=== PATIENT | male | born 1990 | race Caucasian/White ===

== ENCOUNTER 2019-05-02 10:07 | Emergency (ER) | payer MEDICARE, OTHER ==
[2019-05-02 10:27] VITALS: BP 145/82; PULSE 105; RESP 18; TEMP 98.5
--- NOTE | 2019-05-02 10:43 | ED ---
General Adult HPI - General Chief complaint: Psychiatric Symptoms Stated complaint: mental health Time Seen by Provider: 05/02/19 10:30 Source: patient, RN notes reviewed Mode of arrival: ambulatory Limitations: no limitations - History of Present Illness Initial comments: Patient is a pleasant 29-year-old male presenting to the emergency Department with complaints of depression and suicidal thoughts. Symptoms have worsened over the past few days. Patient states many stressors. Patient does admit to having problems with alcohol and substance abuse. Patient does hear voices telling him to hurt himself. No visual hallucinations. No homicidal thoughts. No history of similar symptoms previously. No new physical complaints. Patient did abrade his left wrist last night. Tetanus immunization last was 7 years ago, definitely less than 10 years ago - Related Data Home Medications Medication Instructions Recorded Confirmed Escitalopram [Lexapro] 20 mg PO HS 05/02/19 05/02/19 Naltrexone HCl [Revia] 50 mg PO DAILY PRN 05/02/19 05/02/19 OLANZapine [ZyPREXA] 15 mg PO HS 05/02/19 05/02/19 lamoTRIgine [LaMICtal] 200 mg PO HS 05/02/19 05/02/19 Allergies Allergy/AdvReac Type Severity Reaction Status Date / Time No Known Allergies Allergy Verified 05/02/19 12:34 Review of Systems ROS Statement: Those systems with pertinent positive or pertinent negative responses have been documented in the HPI. ROS Other: All systems not noted in ROS Statement are negative. Constitutional: Denies: fever Eyes: Denies: eye pain ENT: Denies: ear pain Respiratory: Denies: cough Cardiovascular: Denies: chest pain Endocrine: Denies: fatigue Gastrointestinal: Denies: abdominal pain Genitourinary: Denies: dysuria Musculoskeletal: Denies: arthralgia Skin: Denies: rash Neurological: Denies: weakness Psychiatric: Reports: depression, auditory hallucinations, suicidal thoughts. Denies: visual hallucinations, homicidal thoughts Past Medical History Past Medical History: No Reported History History of Any Multi-Drug Resistant Organisms: None Reported Past Surgical History: Tonsillectomy Additional Past Surgical History / Comment(s): oral Past Psychological History: Anxiety, Bipolar, Depression, PTSD, Schizophrenia Smoking Status: Current every day smoker Past Alcohol Use History: Abuse, Daily, Heavy Past Drug Use History: Marijuana General Exam Limitations: no limitations General appearance: alert, in no apparent distress Head exam: Present: normocephalic Eye exam: Present: normal appearance Neck exam: Present: normal inspection Respiratory exam: Present: normal lung sounds bilaterally Cardiovascular Exam: Present: regular rate, normal rhythm GI/Abdominal exam: Present: soft. Absent: tenderness Extremities exam: Present: other (Abrasion left volar aspect of the wrist) Neurological exam: Present: alert Psychiatric exam: Present: depressed Skin exam: Present: abrasion Course Vital Signs 05/02/19 10:22 Temperature 98.5 F Pulse Rate 105 H Respiratory 18 Rate Blood Pressure 145/82 O2 Sat by Pulse 97 Oximetry Medical Decision Making - Medical Decision Making Patient was seen by mental health services with plans for transfer. Family did petition. Positive clinical certificate completed. - Lab Data Lab Results 05/02/19 Range/Units 13:09 Urine Opiates Screen Not Detected (NotDetected) Ur Oxycodone Screen Not Detected (NotDetected) Urine Methadone Screen Not Detected (NotDetected) Ur Propoxyphene Screen Not Detected (NotDetected) Ur Barbiturates Screen Not Detected (NotDetected) U Tricyclic Antidepress Not Detected (NotDetected) Ur Phencyclidine Scrn Not Detected (NotDetected) Ur Amphetamines Screen Not Detected (NotDetected) U Methamphetamines Scrn Not Detected (NotDetected) U Benzodiazepines Scrn Not Detected (NotDetected) Urine Cocaine Screen Not Detected (NotDetected) U Marijuana (THC) Screen Detected H (NotDetected) Disposition Clinical Impression: Depression, Suicidal ideation Disposition: TRANSFER TO PSYCH HOSP/UNIT Is patient prescribed a controlled substance at d/c from ED?: No Referrals: None,Stated [Primary Care Provider] - 1-2 days Time of Disposition: 14:07
[2019-05-02] MEDS ORDERED: LORazepam 1 MG TAB PO STA (12:16)
[2019-05-02 13:38] LABS: Amphetamine Screen,Urine Not Detected (NotDetected); Barbiturate Screen,Urine Not Detected (NotDetected); Benzodiazepines Screen,Urine Not Detected (NotDetected); Cocaine Screen,Urine Not Detected (NotDetected); Methadone Screen, Urine Not Detected (NotDetected); Opiate Screen,Urine Not Detected (NotDetected); Oxycodone Screen, Urine Not Detected (NotDetected); Phencyclidine Screen,Urine Not Detected (NotDetected); Tricyclic Antidepressant,Urine Not Detected (NotDetected); Urn Cannabinoid Scrn Detected (NotDetected)
[2019-05-02] MEDS ORDERED: NICOTINE 14MG/24HR PATCH TRANSDERM STA (15:40)
== END 2019-05-02 16:09 ==
LOC: EC 10:07
DX: F32.9 Major depressive disorder, single episode, unspecified (principal); R45.851 Suicidal ideations; S60.812A Abrasion of left wrist, initial encounter; F41.9 Anxiety disorder, unspecified; F20.9 Schizophrenia, unspecified; F10.10 Alcohol abuse, uncomplicated; F17.200 Nicotine dependence, unspecified, uncomplicated; Z79.899 Other long term (current) drug therapy; X78.9XXA Intentional self-harm by unspecified sharp object, initial encounter
CPT/HCPCS: 82075; 80306; 99285; S4990

== ENCOUNTER 2022-12-18 17:36 | Emergency (ER) | payer MEDICARE, OTHER ==
[2022-12-18 17:50] VITALS: RESP 18
--- NOTE | 2022-12-18 18:21 | ED ---
Lower Extremity Injury HPI - General Chief Complaint: Extremity Injury, Lower Stated Complaint: L ankle injury Time Seen by Provider: 12/18/22 17:54 Source: patient, RN notes reviewed, old records reviewed Mode of arrival: ambulatory Limitations: no limitations - History of Present Illness Initial Comments: This is a 32-year-old male to the emergency department for evaluation. This patient presents today for evaluation regards to ankle injury left ankle injury after falling down a few stairs. Patient missed a step and came down on his ankle with inversion of the left ankle. Pain on the lateral aspect of that left ankle. Patient is able to move but barely. Significant pain with weightbearing. No other to medic injuries noted other complaints are noted MD Complaint: leg injury, ankle injury (Left ankle) -: hour(s) Injury: Ankle: Left Type of Injury: inversion Place: home Severity: severe Severity scale (1-10): 8 Improves With: nothing Worsens With: nothing Context: fall Other Symptoms: other (0) Associated Symptoms: swelling, numbness Treatments Prior to Arrival: other (0) - Related Data Home Medications Medication Instructions Recorded Confirmed Escitalopram [Lexapro] 20 mg PO HS 05/02/19 05/02/19 Naltrexone HCl [Revia] 50 mg PO DAILY PRN 05/02/19 05/02/19 OLANZapine [ZyPREXA] 15 mg PO HS 05/02/19 05/02/19 lamoTRIgine [LaMICtal] 200 mg PO HS 05/02/19 05/02/19 Allergies Allergy/AdvReac Type Severity Reaction Status Date / Time No Known Allergies Allergy Verified 12/18/22 17:50 Review of Systems ROS Statement: Those systems with pertinent positive or pertinent negative responses have been documented in the HPI. ROS Other: All systems not noted in ROS Statement are negative. Past Medical History Past Medical History: No Reported History History of Any Multi-Drug Resistant Organisms: None Reported Past Surgical History: Tonsillectomy Additional Past Surgical History / Comment(s): oral Past Psychological History: Anxiety, Bipolar, Depression, PTSD, Schizophrenia Smoking Status: Current every day smoker Past Alcohol Use History: Abuse, Daily, Heavy Past Drug Use History: Marijuana General Exam Limitations: no limitations General appearance: alert, in no apparent distress Head exam: Present: atraumatic, normocephalic, normal inspection Eye exam: Present: normal appearance, PERRL, EOMI. Absent: scleral icterus, c onjunctival injection, periorbital swelling ENT exam: Present: normal exam, mucous membranes moist Neck exam: Present: normal inspection. Absent: tenderness, meningismus, lymphadenopathy Respiratory exam: Present: normal lung sounds bilaterally. Absent: respiratory distress, wheezes, rales, rhonchi, stridor Cardiovascular Exam: Present: regular rate, normal rhythm, normal heart sounds. Absent: systolic murmur, diastolic murmur, rubs, gallop, clicks GI/Abdominal exam: Present: soft, normal bowel sounds. Absent: distended, tenderness, guarding, rebound, rigid Extremities exam: Present: tenderness, normal capillary refill, other (Left ankle swelling). Absent: pedal edema, joint swelling, calf tenderness Back exam: Present: normal inspection Neurological exam: Present: alert, oriented X3, CN II-XII intact Psychiatric exam: Present: normal affect, normal mood Skin exam: Present: warm, dry, intact, normal color. Absent: rash Course Vital Signs 12/18/22 12/18/22 17:46 19:00 Temperature 97.8 F 97.9 F Pulse Rate 100 96 Respiratory 18 18 Rate Blood Pressure 116/79 121/68 O2 Sat by Pulse 95 96 Oximetry - Reevaluation(s) Reevaluation #1: 12/18/22 19:15 Medical record is reviewed Reevaluation #2: 12/18/22 19:15 Patient symptoms unchanged Reevaluation #3: 12/18/22 19:15 Patient informed results questions answered Reevaluation #4: 12/18/22 18:21 Was pt. sent in by a medical professional or institution? @ -no Did you speak to anyone other than the patient for history? @ -no Did you review nursing and triage notes? @ -agree Were old charts reviewed? @ -yes Differential Diagnosis? @ -prior EKG interpreted by me (3pts min.)? @ -no X-rays interpreted by me (1pt min.)? @ -yes CT interpreted by me (1pt min.)? @ -no U/S interpreted by me (1pt. min.)? @ -no What testing was considered but not performed? (CT, X-rays, U/S, labs)? Why? @ -no What meds were considered but not given? Why? @ -no Did you discuss the management of the patient with other professionals? @ -no Did you reconcile home meds? @ -no Was smoking cessation discussed for >3mins.? @ -no Was critical care preformed (if so, how long)? @ -no Were there social determinants of health that impacted care today? How? (Homelessness, low income, unemployed, alcoholism, drug addiction, transportation, low edu. Level, literacy, decrease access to med. care, [facility], rehab)? @ -no Was there de-escalation of care discussed even if they declined? (Discuss DNR or withdrawal of care, Hospice)? @ -no What co-morbidities impacted this encounter? (DM, HTN, Smoking, COPD, CAD, Cancer, CVA, Hep., AIDS, mental health diagnosis, sleep apnea, morbid obesity)? @ -no Was patient admitted / discharged? @ -32 male with left inversion injury of left ankle walking down stairs. Patient continued weight currently here in the ER feels well and can be discharged home Discharge Undiagnosed new problem with uncertain prognosis? @ -no Drug Therapy requiring intensive monitoring for toxicity (Heparin, Nitro, Insulin, Cardizem)? @ -no Were any procedures done? @ -no Diagnosis/symptom? @ -Fall left ankle sprain Acute, or Chronic, or Acute on Chronic? @ -acute Uncomplicated (without systemic symptoms) or Complicated (systemic symptoms)? @ -complicated Side effects of treatment? @ -no Exacerbation, Progression, or Severe Exacerbation] @ -no Poses a threat to life or bodily function? @ -no Medical Decision Making - Medical Decision Making 32 male with left inversion injury of left ankle walking down stairs. Patient continued weight currently here in the ER feels well and can be discharged home - Radiology Data Radiology results: report reviewed (X-ray left ankle negative for traumatic injury), image reviewed Disposition Clinical Impression: Left ankle sprain Disposition: HOME SELF-CARE Condition: Good Instructions (If sedation given, give patient instructions): Ankle Sprain (ED) Is patient prescribed a controlled substance at d/c from ED?: No Referrals: Zelalem Kramer MD [Primary Care Provider] - 1-2 days Time of Disposition: 19:00
--- NOTE | 2022-12-18 18:57 | XR ---
EXAMINATION TYPE: XR ankle complete LT DATE OF EXAM: 12/18/2022 6:35 PM INDICATION: Patient age:Male; 32 years old; Reason for study: pain; [facility]. COMPARISON: None TECHNIQUE: The left ankle is imaged in frontal, lateral and oblique projections. FINDINGS: There is no evidence of acute osseous pathology. The joint spaces are well-preserved without evidenc e of subluxation or dislocation. Kager's fat pad is intact. Moderate soft tissue swelling around the ankle. No radiopaque foreign bodies are identified. IMPRESSION: 1. No evidence of acute fracture. 2. Subcutaneous swelling around the ankle likely secondary to underlying soft tissue injury.
[2022-12-18 19:01] VITALS: BP 121/68; PULSE 96; TEMP 97.9
== END 2022-12-18 19:12 | disposition home or self-care (01) ==
LOC: EC 17:36
DX: S93.402A Sprain of unspecified ligament of left ankle, initial encounter (principal); F31.9 Bipolar disorder, unspecified; F41.9 Anxiety disorder, unspecified; F17.200 Nicotine dependence, unspecified, uncomplicated; F12.90 Cannabis use, unspecified, uncomplicated; Z79.899 Other long term (current) drug therapy; W10.9XXA Fall (on) (from) unspecified stairs and steps, initial encounter
CPT/HCPCS: 99283

== ENCOUNTER 2023-05-15 14:26 | Inpatient (IN) | payer MEDICARE, MEDICAID ==
--- NOTE | 2023-05-15 16:19 | ED ---
Psych HPI - General Chief Complaint: Psychiatric Symptoms Stated Complaint: Mental Health Time Seen by Provider: 05/15/23 14:40 Source: patient Mode of arrival: ambulatory - History of Present Illness Initial Comments: Is a 33-year-old male with a history of mental health issues for which his parents have guardianship of him and full control of his finances. Patient reports that he lives in his duplex which is owned by his parents and they manage his finances and dictated a living. Patient states that he's been very depressed lately he hasn't been cleaning up after himself he does admit that there is mold growing in bugs throughout his apartment. He states that his parents came to house yesterday were quite upset they're yelling and a member reading it him in front of his neighbors which she found quite embarrassing. They came back today and advised him the removing him into a hotel room. Patient doesn't know why he is moving at a hotel room how long he'll be there. He states she just feels absolutely hopeless and his current condition. Patient denies any suicidal or homicidal ideation. He does not believe he is hallucinating or having any delusions. He simply feels depressed and hopeless he has not been tending to his own self-care personal hygiene or maintaining his home due to this depression. - Related Data Home Medications Medication Instructions Recorded Confirmed No Known Home Medications 05/15/23 05/15/23 Allergies Allergy/AdvReac Type Severity Reaction Status Date / Time No Known Allergies Allergy Verified 05/15/23 16:25 Review of Systems ROS Statement: Those systems with pertinent positive or pertinent negative responses have been documented in the HPI. ROS Other: All systems not noted in ROS Statement are negative. Past Medical History Past Medical History: No Reported History History of Any Multi-Drug Resistant Organisms: None Reported Past Surgical History: Tonsillectomy Additional Past Surgical History / Comment(s): oral Past Psychological History: Anxiety, Bipolar, Depression, PTSD, Schizophrenia Smoking Status: Current every day smoker Past Alcohol Use History: Abuse, Daily, Heavy Past Drug Use History: Marijuana General Exam - General Exam Comments Initial Comments: Physical Exam GENERAL: Unkempt appearance HENT: Normocephalic, Atraumatic. EYES: PERRL, EOMI PULMONARY: Unlabored respirations. CARDIOVASCULAR: well perfused extremities ABDOMEN: Non-distended SKIN: No rashes or bruising : Deferred NEUROLOGIC: Alert and oriented Normal speech MUSCULOSKELETAL: Moving all extremities with no apparent injury PSYCHIATRIC: Depression Limitations: no limitations Course Vital Signs 05/15/23 14:33 Temperature 98.6 F Pulse Rate 92 Respiratory 18 Rate Blood Pressure 149/92 O2 Sat by Pulse 96 Oximetry Medical Decision Making - Medical Decision Making Was pt. sent in by a medical professional or institution (, PA, FURNITURE MECHANIC, urgent care, hospital, or fci...) When possible be specific @ -No Did you speak to anyone other than the patient for history (EMS, parent, family, police, friend...)? What history was obtained from this source @ -No Did you review nursing and triage notes (agree or disagree)? Why? @ -I reviewed and agree with nursing and triage notes Were old charts reviewed (outside hosp., previous admission, EMS record, old EKG, old radiological studies, urgent care reports/EKG's, [facility]ci records)? Report findings @ -No old charts were reviewed Differential Diagnosis (chest pain, altered mental status, abdominal pain women, abdominal pain men, vaginal bleeding, weakness, fever, dyspnea, syncope, headache, dizziness, GI bleed, back pain, seizure, CVA, palpatations, mental health)? @ -Differential Mental Health Depression, anxiety, bipolar, psychosis, schizophrenia, borderline personality, situational depression, adjustment disorder, behavioral disorder, brain tumor, malingering, substance abuse, encephalopathy, medication reaction, dementia, hypothyroidism, degenerative neurologic disorder, lupus.... This is not meant to be all-inclusive list EKG interpreted by me (3pts min.). @ -As above X-rays interpreted by me (1pt min.). @ -None done CT interpreted by me (1pt min.). @ -None done U/S interpreted by me (1pt. min.). @ -None done What testing was considered but not performed or refused? (CT, X-rays, U/S, labs)? Why? @ -None What meds were considered but not given or refused? Why? @ -None Did you discuss the management of the patient with other professionals (professionals i.e. , PA, FURNITURE MECHANIC, lab, RT, psych nurse, bilingual social worker, signal intelligence/electronic warfare, teacher, space officer, home health care case manager)? Give summary @ -No Was smoking cessation discussed for >3mins.? @ -No Was critical care preformed (if so, how long)? @ -No Were there social determinants of health that impacted care today? How? (Homelessness, low income, unemployed, alcoholism, drug addiction, trans portation, low edu. Level, literacy, decrease access to med. care, [facility], rehab)? @ -Alcoholism Was there de-escalation of care discussed even if they declined (Discuss DNR or withdrawal of care, Hospice)? DNR status @ -No What co-morbidities impacted this encounter? (DM, HTN, Smoking, COPD, CAD, Cancer, CVA, ARF, Chemo, Hep., AIDS, mental health diagnosis, sleep apnea, morbid obesity)? @ Mental health diagnosis Was patient admitted / discharged? Hospital course, mention meds given and route, prescriptions, significant lab abnormalities, going to OR and other pertinent info. @ -Was seen and evaluated history was obtained from patient, patient was medically cleared for evaluation by mental health specialist, patient was evaluated and deemed to be suitable for inpatient psychiatric care. Patient signed himself in voluntarily. Covid swab was obtained for placement in the mental health unit Undiagnosed new problem with uncertain prognosis? @ -No Drug Therapy requiring intensive monitoring for toxicity (Heparin, Nitro, Insulin, Cardizem)? @ -No Were any procedures done? @ -No Diagnosis/symptom? @ Major depression Acute, or Chronic, or Acute on Chronic? @ -default Uncomplicated (without systemic symptoms) or Complicated (systemic symptoms)? @ -default Side effects of treatment? @ -No Exacerbation, Progression, or Severe Exacerbation? @ -No Poses a threat to life or bodily function? How? (Chest pain, [place], [place], pneumonia, PE, COPD, DKA, ARF, appy, cholecystitis, CVA, Diverticulitis, Homicidal, Suicidal, threat to staff... and all critical care pts) @ -No - Lab Data Lab Results 05/15/23 Range/Units 16:22 Urine Opiates Screen Not Detected (NotDetected) Ur Oxycodone Screen Not Detected (NotDetected) Urine Methadone Screen Not Detected (NotDetected) Ur Propoxyphene Screen Not Detected (NotDetected) Ur Barbiturates Screen Not Detected (NotDetected) U Tricyclic Antidepress Not Detected (NotDetected) Ur Phencyclidine Scrn Not Detected (NotDetected) Ur Amphetamines Screen Not Detected (NotDetected) U Methamphetamines Scrn Not Detected (NotDetected) U Benzodiazepines Scrn Not Detected (NotDetected) Urine Cocaine Screen Not Detected (NotDetected) U Marijuana (THC) Screen Not Detected (NotDetected) Disposition Clinical Impression: Suicidal ideation, Depression Disposition: TRANSFER TO PSYCH HOSP/UNIT Condition: Serious Is patient prescribed a controlled substance at d/c from ED?: No Referrals: Zelalem Kramer MD [Primary Care Provider] - 1-2 days
[2023-05-15 16:50] LABS: Amphetamine Screen,Urine Not Detected (NotDetected); Barbiturate Screen,Urine Not Detected (NotDetected); Benzodiazepines Screen,Urine Not Detected (NotDetected); Cocaine Screen,Urine Not Detected (NotDetected); Methadone Screen, Urine Not Detected (NotDetected); Opiate Screen,Urine Not Detected (NotDetected); Oxycodone Screen, Urine Not Detected (NotDetected); Phencyclidine Screen,Urine Not Detected (NotDetected); Tricyclic Antidepressant,Urine Not Detected (NotDetected); Urn Cannabinoid Scrn Not Detected (NotDetected)
[2023-05-15] MEDS ORDERED: haloperidoL 5 MG TAB PO PRN (20:55)
[2023-05-15] MEDS ORDERED: ACETAMINOPHEN TAB 325 MG TAB PO PRN (20:55)
[2023-05-15] MEDS ORDERED: MAGNESIUM HYDROXIDE 2,400 MG/30 ML CUP PO PRN (20:55)
[2023-05-15] MEDS ORDERED: MAG HYDROX/AL HYDROX/SIMETH 30 ML CUP PO PRN (20:55)
[2023-05-15] MEDS ORDERED: LORazepam 2 MG/ML INJ IM PRN (20:55)
[2023-05-15] MEDS ORDERED: IBUPROFEN 600 MG TAB PO PRN (20:55)
[2023-05-15] MEDS ORDERED: HALOPERIDOL LACTATE 5 MG/ML 1 ML VIAL IM PRN (20:55)
[2023-05-15 21:36] LABS: Appearance,Urine Clear (Clear); Bilirubin,Urine Negative (Negative); Blood,Urine Negative (Negative); Color,Urine Yellow; Glucose,Urine (UA) 4+ (Negative); Ketones,Urine Trace (Negative); Leukocyte Esterase,Urine Negative (Negative); Mucus,Urine Rare /hpf; Nitrite,Urine Negative (Negative); Protein,Urine 1+ (Negative); RBC,Urine <1 /hpf (0-5); Specific Gravity,Urine 1.025 (1.001-1.035); WBC,Urine 2 /hpf (0-5)
[2023-05-15] MEDS: LORazepam 1 MG TAB PO PRN (22:21)
[2023-05-16] MEDS: NICOTINE 14MG/24HR PATCH TRANSDERM SCH (08:30)
[2023-05-16] MEDS: LORazepam 1 MG TAB PO PRN (08:34)
[2023-05-16 10:11] LABS: Basophils % (A) 1 %; Eosinophils # (A) 0.1 k/uL (0-0.7); Eosinophils % (A) 2 %; HCT 45.9 % (39.0-53.0); HGB 15.6 gm/dL (13.0-17.5); Lymphocytes # (A) 1.2 k/uL (1.0-4.8); Lymphocytes % (A) 21 %; MCHC 34.1 g/dL (31.0-37.0); MCV 99.7 fL (80.0-100.0); Mean Platelet Volume 9.3; Monocytes # (A) 0.4 k/uL (0-1.0); Monocytes % (A) 7 %; Neutrophils # (A) 3.9 k/uL (1.3-7.7); Neutrophils % (A) 69 %; Platelet Count 191 k/uL (150-450); RDW 12.6 % (11.5-15.5); WBC 5.7 k/uL (3.8-10.6)
[2023-05-16 10:46] LABS: ALT 40 U/L (4-49); AST 50 U/L (17-59); African American GFR (CKD) >90 (>60 ml/min/1.73 sqM); Albumin 4.5 g/dL (3.5-5.0); Alkaline Phosphatase 85 U/L (38-126); Anion Gap 12 mmol/L; Blood Urea Nitrogen 8 mg/dL (9-20); Carbon Dioxide 32 mmol/L (22-30); Chloride 93 mmol/L (98-107); Glucose 87 mg/dL (74-99); Non-African American GFR(CKD) >90 (>60 ml/min/1.73 sqM); Potassium 4.1 mmol/L (3.5-5.1); Sodium 137 mmol/L (137-145); Total Bilirubin 1.9 mg/dL (0.2-1.3); Total Protein 7.3 g/dL (6.3-8.2)
[2023-05-16] MEDS ORDERED: traZODone HCL 50 MG TAB PO PRN (11:57)
--- NOTE | 2023-05-16 12:06 | P.HP ---
Psychiatric H&P - . H&P Date: 05/16/23 History & Physical: Allergies Allergy/AdvReac Type Severity Reaction Status Date / Time No Known Allergies Allergy Verified 05/16/23 00:35 Vital Signs Temp 98.4 F 05/16/23 08:35 Pulse 124 H 05/16/23 08:35 Resp 18 05/16/23 08:35 BP 121/90 05/16/23 08:35 Pulse Ox 96 05/15/23 14:33 FiO2 Intake & Output 05/15/23 05/16/23 05/16/23 18:59 06:59 18:59 Weight 79.379 kg 75.7 kg Laboratory Last Values WBC 5.7 k/uL (3.8-10.6) 05/16/23 09:27 RBC 4.60 m/uL (4.30-5.90) 05/16/23 09:27 Hgb 15.6 gm/dL (13.0-17.5) 05/16/23 09:27 Hct 45.9 % (39.0-53.0) 05/16/23 09:27 MCV 99.7 fL (80.0-100.0) 05/16/23 09:27 MCH 34.0 pg (25.0-35.0) 05/16/23 09:27 MCHC 34.1 g/dL (31.0-37.0) 05/16/23 09:27 RDW 12.6 % (11.5-15.5) 05/16/23 09:27 Plt Count 191 k/uL (150-450) 05/16/23 09:27 MPV 9.3 05/16/23 09:27 Neutrophils % 69 % 05/16/23 09:27 Lymphocytes % 21 % 05/16/23 09:27 Monocytes % 7 % 05/16/23 09:27 Eosinophils % 2 % 05/16/23 09:27 Basophils % 1 % 05/16/23 09:27 Neutrophils # 3.9 k/uL (1.3-7.7) 05/16/23 09:27 Lymphocytes # 1.2 k/uL (1.0-4.8) 05/16/23 09:27 Monocytes # 0.4 k/uL (0-1.0) 05/16/23 09:27 Eosinophils # 0.1 k/uL (0-0.7) 05/16/23 09:27 Basophils # 0.0 k/uL (0-0.2) 05/16/23 09:27 Sodium 137 mmol/L (137-145) 05/16/23 09:27 Potassium 4.1 mmol/L (3.5-5.1) 05/16/23 09:27 Chloride 93 mmol/L (98-107) L 05/16/23 09:27 Carbon Dioxide 32 mmol/L (22-30) H 05/16/23 09:27 Anion Gap 12 mmol/L 05/16/23 09:27 BUN 8 mg/dL (9-20) L 05/16/23 09:27 Creatinine 0.96 mg/dL (0.66-1.25) 05/16/23 09:27 Est GFR (CKD-EPI)AfAm >90 (>60 ml/min/1.73 sqM) 05/16/23 09:27 Est GFR (CKD-EPI)NonAf >90 (>60 ml/min/1.73 sqM) 05/16/23 09:27 Glucose 87 mg/dL (74-99) 05/16/23 09:27 Calcium 10.0 mg/dL (8.4-10.2) 05/16/23 09:27 Total Bilirubin 1.9 mg/dL (0.2-1.3) H 05/16/23 09:27 AST 50 U/L (17-59) 05/16/23 09:27 ALT 40 U/L (4-49) 05/16/23 09:27 Alkaline Phosphatase 85 U/L (38-126) 05/16/23 09:27 Total Protein 7.3 g/dL (6.3-8.2) 05/16/23 09:27 Albumin 4.5 g/dL (3.5-5.0) 05/16/23 09:27 TSH 2.280 mIU/L (0.465-4.680) 05/16/23 09:27 Urine Color Yellow 05/15/23 19:00 Urine Appearance Clear (Clear) 05/15/23 19:00 Urine pH 8.0 (5.0-8.0) 05/15/23 19:00 Ur Specific [place] 1.025 (1.001-1.035) 05/15/23 19:00 Urine Protein 1+ (Negative) H 05/15/23 19:00 Urine Glucose (UA) 4+ (Negative) H 05/15/23 19:00 Urine Ketones Trace (Negative) H 05/15/23 19:00 Urine Blood Negative (Negative) 05/15/23 19:00 Urine Nitrite Negative (Negative) 05/15/23 19:00 Urine Bilirubin Negative (Negative) 05/15/23 19:00 Urine Urobilinogen 3.0 mg/dL (<2.0) 05/15/23 19:00 Ur Leukocyte Esterase Negative (Negative) 05/15/23 19:00 Urine RBC <1 /hpf (0-5) 05/15/23 19:00 Urine WBC 2 /hpf (0-5) 05/15/23 19:00 Urine Mucus Rare /hpf (None) H 05/15/23 19:00 Urine Opiates Screen Not Detected (NotDetected) 05/15/23 16:22 Ur Oxycodone Screen Not Detected (NotDetected) 05/15/23 16:22 Urine Methadone Screen Not Detected (NotDetected) 05/15/23 16:22 Ur Propoxyphene Screen Not Detected (NotDetected) 05/15/23 16:22 Ur Barbiturates Screen Not Detected (NotDetected) 05/15/23 16:22 U Tricyclic Antidepress Not Detected (NotDetected) 05/15/23 16:22 Ur Phencyclidine Scrn Not Detected (NotDetected) 05/15/23 16:22 Ur Amphetamines Screen Not Detected (NotDetected) 05/15/23 16:22 U Methamphetamines Scrn Not Detected (NotDetected) 05/15/23 16:22 U Benzodiazepines Scrn Not Detected (NotDetected) 05/15/23 16:22 Urine Cocaine Screen Not Detected (NotDetected) 05/15/23 16:22 U Marijuana (THC) Screen Not Detected (NotDetected) 05/15/23 16:22 SARS-CoV-2 (PCR) Not Detected (Not Detectd) 05/15/23 19:55 05/16/23 12:01 IDENTIFYING DATA: Patient is a 33-year-old male, currently lives alone in a duplex, he single, he collects SSD. HPI: Patient presented to the hospital yesterday complaining of depression and suicidal ideations. Apparently patient was taking care of his home, has a history of mental illness. He was also endorsing suicidal ideations and depression. Patient's urine drug screen was negative. He was fairly concrete, hesitant in his speech, he is also fairly vague about his symptoms. He states that his parents are "toxic people". He claims that they have been having significant financial issues between them, he believes that his parents are taking most of his money. He states his mother is his payee. He claims that his parents are also his landlord and are very controlling of him. He states that he "gave up on my house" and states that he left [place]. He claims that he has been mainly isolative. States that he has been diagnosed with Schizophrenia in the past and has been going [facility]. He has been off his psychiatric medications for several months now. He states that he is also been drinking alcohol about 2 pints a day, has a history of withdrawals. States that he believes that his parents are trying to move him into a hotel and get him out of the house. He states that he is feeling depressed, anxious and hopeless. He claims that he does have auditory hallucinations however they are not as bad as they used to be, denying any visual hallucinations. Patient denies any suicidal or homicidal ideations intent or plan. Patient denies any flight of ideas racing thoughts and increased in goal directed behavior. Patient admits to using alcohol as noted above, smokes cigarettes daily. PAST PSYCHIATRIC HISTORY: Patient states that he has history of schizophrenia. Patient claims that he used to be on Prolixin D and several other antipsychotics in the past including Zyprexa however cannot remember most of them. Patient claims that he was last admitted to [facility] and also [facility] for psychiatric purposes several years ago. Patient denies any current psychiatric outpatient follow-up. Patient denies any history of suicide attempts in the past. Past Medical History: No Reported History History of Any Multi-Drug Resistant Organisms: None Reported Past Surgical History: Tonsillectomy Additional Past Surgical History / Comment(s): oral Past Psychological History: Anxiety, Bipolar, Depression, PTSD, Schizophrenia Smoking Status: Current every day smoker Past Alcohol Use History: Abuse, Daily, Heavy Past Drug Use History: Marijuana ALLERGIES: as per EMR CHEMICAL DEPENDENCY HISTORY: as per HPI FAMILY PSYCHIATRIC/SUBSTANCE USE HISTORY: Things that his father has PTSD SOCIAL HISTORY: Patient was born and raised in [facility]. He states that he completed some college. Claims that he does not have any legal history. States that he currently lives alone in a duplex, he is single, he has no kids. He collects SSD.. MENTAL STATUS EXAM: General Appearance: Patient appears to be tall, thin, unshaven, longer hair, stated age is alert, directable, and attempts to cooperate. Patient appears to have poor hygiene and grooming. Behavior: Patient is seated without any agitated behavior. Speech: Patient's speech is fluent and nonpressured.Hesitant and soft tone Mood/Affect: Patient reports their mood is depressed and anxious, affect is congruent and constricted. Suicidality/Homicidality: Patient denies having any homicidal ideation intent or plan. Denies any suicidal ideations intent or plan Perceptions: Patient denies any visual hallucinations and denies any auditory hallucinations Though content/process: There is no evidence of any delusional thought content and thought process is linear and goal-directed. Rambles at times. Memory and concentration: AOX3, grossly intact for the purposes of this session. Can spell "WORLD" backwards Judgment and insight: poor STRENGTHS/WEAKNESSES: strength is that patient is resilient. Weakness is that patient has poor judgment and is impulsive INTELLECT: average IMPRESSIONS: Schizoaffective disorder, depressive type Alcohol use disorder Nicotine dependence PLAN: -Patient is admitted under voluntary status to MHU for stabilization of psychiatric symptoms and safety. Patient has signed adult voluntary form and medication consent and is placed in patient's chart. -Medications : Librium 25 mg 3 times a day for alcohol withdrawal, paliperidone by mouth 3 mg daily at bedtime for psychosis/mood stabilization/sleep, trazodone when necessary for sleep, Zoloft 25 mg daily for mood/anxiety. -Ativan and Haldol PRN for agitation/aggression -Started thiamine, MVM for etoh use -CIWA protocol with Ativan PRN for ETOH withdrawal -Patient was counselled on substance abuse and desired to cut back on use -Patient was informed of the risks, benefits and side effects of the medication and patient verbally consented to taking the medications. Patient signed med consent form and was placed in chart. -Internal Medicine consult to perform medical evaluation and physical. -NRT - nicotine patch -SW on board for discharge planning. Encourage patient to participate in groups to work on coping skills.
[2023-05-16] MEDS: SERTRALINE 25 MG TAB PO SCH (12:39)
[2023-05-16] MEDS: chlordiazePOXIDE 25 MG CAP PO SCH ×3 (12:39→21:08)
--- NOTE | 2023-05-16 13:29 | P.MDCNMH ---
History of Present Illness H&P Date: 05/16/23 History of present illness; patient 33-year-old gentleman with past medical hist ory significant for depression who presented to the ER for psychiatric evaluation. Patient lives in a duplex, wound by his parents who have guardianship over him and his finances. Patient has been reporting that he has been very depressed for the last few weeks, patient is complaining of feeling of hopelessness. Patient stopped taking care of his personal hygiene and taking care of his house. Patient house was in total mess with mold growing around and bugs in the house. When patient's parents visited him yesterday, they became concerned . Patient was complaining of auditory hallucinations Patient denies visual hallucination. Denies any suicidal or homicidal thoughts. According to the patient patient's parents told him to leave the house and go to the motel. Patient decided to com e to the ER Initial lab work done in the ER showed WBC 5.7, hemoglobin 15.6, platelet count 191, UA negative for infection Urine drug screen negative. COVID-19 not detected Patient admitted to inpatient psych REVIEW OF SYSTEMS: CONSTITUTIONAL: No fever, no malaise, no fatigue. HEENT: No recent visual problems or hearing problems. Denied any sore throat. CARDIOVASCULAR: No chest pain, orthopnea, PND, no palpitations, no syncope. PULMONARY: No shortness of breath, no cough, no hemoptysis. GASTROINTESTINAL: No diarrhea, no nausea, no vomiting, no abdominal pain. NEUROLOGICAL: No headaches, no weakness, no numbness. HEMATOLOGICAL: Denies any bleeding or petechiae. GENITOURINARY: Denies any burning micturition, frequency, or urgency. MUSCULOSKELETAL/RHEUMATOLOGICAL: Denies any joint pain, swelling, or any muscle pain. ENDOCRINE: Denies any polyuria or polydipsia. The rest of the 14-point review of systems is negative. PHYSICAL EXAMINATION: GENERAL: The patient is alert and oriented x3, not in any acute distress. Well developed, well nourished. HEENT: Pupils are round and equally reacting to light. EOMI. No scleral icterus. No conjunctival pallor. Normocephalic, atraumatic. No pharyngeal erythema. No thyromegaly. CARDIOVASCULAR: S1 and S2 present. No murmurs, rubs, or gallops. PULMONARY: Chest is clear to auscultation, no wheezing or crackles. ABDOMEN: Soft, nontender, nondistended, normoactive bowel sounds. No palpable organomegaly. MUSCULOSKELETAL: No joint swelling or deformity. EXTREMITIES: No cyanosis, clubbing, or pedal edema. NEUROLOGICAL: Gross neurological examination did not reveal any focal deficits. SKIN: No rashes. Assessment and plan Severe major Depression Schizoaffective disorder, depressive type Alcohol use disorder Nicotine dependence Monitor vital signs Elopement Precautions Continue psych meds per psychiatry team Labs and medication were reviewed.. Continue same treatment. Continue with sym ptomatic treatment. Resume home medication. Monitor labs and vitals. DVT and GI prophylaxis. Further recommendations as per clinical course of the patient Dictation was produced using [employer] dictation software. please excuse any grammatical, word or spelling errors. Past Medical History Past Medical History: No Reported History History of Any Multi-Drug Resistant Organisms: None Reported Past Surgical History: Tonsillectomy Additional Past Surgical History / Comment(s): oral Past Psychological History: Anxiety, Bipolar, Depression, PTSD, Schizophrenia Smoking Status: Current every day smoker Past Alcohol Use History: Abuse, Daily, Heavy Additional Past Alcohol Use History / Comment(s): HX of ETOH abuse and substance abuse. Rehab 4 years ago Past Drug Use History: Marijuana Medications and Allergies Home Medications Medication Instructions Recorded Confirmed Type No Known Home Medications 05/15/23 05/15/23 History Allergies Allergy/AdvReac Type Severity Reaction Status Date / Time No Known Allergies Allergy Verified 05/16/23 00:35 Physical Exam Vitals: Vital Signs Temp Pulse Pulse Resp BP BP Pulse Ox 05/16/23 08:35 98.4 F 124 H 18 121/90 05/15/23 21:44 98.2 F 103 H 18 154/102 05/15/23 14:33 98.6 F 92 18 149/92 96 Intake and Output 05/15/23 05/16/23 05/16/23 22:59 06:59 14:59 Other: Weight 75.7 kg Cranial Nerve Examination - Cranial Nerves Cranial Nerve II- Optic: Intact (Cranial nerves II through XII intact) Cranial Nerve III- Oculomotor: Intact Cranial Nerve IV- Trochlear: Intact Cranial Nerve V- Trigeminal: Intact Cranial Nerve - Abducens: Intact Cranial Nerve VII- Facial: Intact Cranial Nerve VIII- Auditory: Intact Cranial Nerve IX- Glossopharyngeal: Intact Cranial Nerve X- Vagus: Intact Cranial Nerve XI- Accessory: Intact Cranial Nerve XII- Hypoglossal: Intact Results CBC & Chem 7: 05/16/23 09:27 05/16/23 09:27 Labs: Abnormal Lab Results - Last 24 Hours (Table) 05/15/23 Range/Units 19:00 Urine Protein 1+ H (Negative) Urine Glucose (UA) 4+ H (Negative) Urine Ketones Trace H (Negative) Urine Mucus Rare H (None) /hpf
[2023-05-16 14:15] VITALS: BMI 20.8
[2023-05-16] MEDS ORDERED: PALIPERIDONE 3 MG TAB.ER.24 PO SCH (21:00)
[2023-05-17] MEDS: NICOTINE 14MG/24HR PATCH TRANSDERM SCH (08:32)
[2023-05-17] MEDS: chlordiazePOXIDE 25 MG CAP PO SCH (08:33)
[2023-05-17] MEDS: SERTRALINE 25 MG TAB PO SCH (08:33)
--- NOTE | 2023-05-17 11:42 | P.PN ---
Progress Note - Text Progress Note Date: 05/17/23 Interval history: Patient was seen wandering the hallways today. hygiene and grooming improving today. he continues to have poor eye contact. He was fairly concrete however was cooperative. States that he is feeling "a bit off" and states that he is feeling tired. We spoke about decreasing the Librium. He claims that his withdrawal symptoms have been improving. Claims that he was able to sleep fairly well last night. Continues have some anxiety, mild depression. He was fairly cooperative today and appropriate. Denying any auditory or visual hallucinations. Denying any suicidal or homicidal ideations intent or plan. MENTAL STATUS EXAM: General Appearance: Patient appears to be tall, thin, unshaven, longer hair, stated age is alert, directable, and attempts to cooperate. Patient appears to have improved. hygiene and grooming. Behavior: Patient is seated without any agitated behavior. More cooperative today Speech: Patient's speech is fluent and nonpressured.Hesitant and soft tone, improving mildly Mood/Affect: Patient reports their mood is improving mildly, affect is congruent and constricted. Suicidality/Homicidality: Patient denies having any homicidal ideation intent or plan. Denies any suicidal ideations intent or plan Perceptions: Patient denies any visual hallucinations and denies any auditory hallucinations Though content/process: There is no evidence of any delusional thought content and thought process is linear and goal-directed. Memory and concentration: AOX3, grossly intact for the purposes of this session. Can spell "WORLD" backwards Judgment and insight: poor, improving mildly IMPRESSIONS: Schizoaffective disorder, depressive type Alcohol use disorder Nicotine dependence PLAN: -Patient is admitted under voluntary status to MHU for stabilization of psychiatric symptoms and safety. Patient has signed adult voluntary form and medication consent and is placed in patient's chart. -Medications : decreased Librium 20 mg 3 times a day for alcohol withdrawal, paliperidone by mouth 3 mg daily at bedtime for psychosis/mood stabilization /sleep, trazodone when necessary for sleep, increase Zoloft 50 mg daily for mood/anxiety. -Ativan and Haldol PRN for agitation/aggression -thiamine, MVM for etoh use -CIWA protocol with Ativan PRN for ETOH withdrawal -NRT - nicotine patch -SW on board for discharge planning. Encourage patient to participate in groups to work on coping skills.
[2023-05-17 12:44] LABS: Chol/HDL Ratio 3.76 Ratio; LDL Cholesterol,Calculated 108.5 mg/dL (0.0-131.0)
[2023-05-17 17:34] VITALS: RESP 18
[2023-05-17 19:27] VITALS: BP 111/65; PULSE 127; TEMP 98
[2023-05-18] MEDS ORDERED: SERTRALINE 50 MG TAB PO SCH (09:00)
--- NOTE | 2023-05-18 11:38 | P.DS ---
Providers Date of admission: 05/15/23 20:48 Expected date of discharge: 05/18/23 Attending physician: Moiz Cobian MD Consults: 05/15/23 20:55 Consult Physician Routine Consulting Provider: Lauren Martinez Consult Reason/Comments: H&P for mental health admission Do you want consulting provider notified?: Yes Primary care physician: Zelalem Kramer MD - Discharge Diagnosis(es) (1) Schizoaffective disorder, depressive type Status: Acute Priority: High (2) Alcohol use disorder Status: Acute Priority: High (3) Nicotine dependence Status: Acute Priority: Low Hospital Course: Admission HPI: Admission note was completed by procedure writer "Patient is a 33-year-old male, currently lives alone in a duplex, he single, he collects SSD. Patient presented to the hospital yesterday complaining of depression and suicidal ideations. Apparently patient was taking care of his home, has a history of mental illness. He was also endorsing suicidal ideations and depression. Patient's urine drug screen was negative. He was fairly concrete, hesitant in his speech, he is also fairly vague about his symptoms. He states that his parents are "toxic people". He claims that they have been having significant financial issues between them, he believes that his parents are taking most of his money. He states his mother is his payee. He claims that his parents are also his landlord and are very controlling of him. He states that he "gave up on my house" and states that he left [place]. He claims that he has been mainly isolative. States that he has been diagnosed with Schizophrenia in the past and has been going [facility]. He has been off his psychiatric medications for several months now. He states that he is also been drinking alcohol about 2 pints a day, has a history of withdrawals. States that he believes that his parents are trying to move him into a hotel and get him out of the house. He states that he is feeling depressed, anxious and hopeless. He claims that he does have auditory hallucinations however they are not as bad as they used to be, denying any visual hallucinations. Patient denies any suicidal or homicidal ideations intent or plan. Patient denies any flight of ideas racing thoughts and increased in goal directed behavior. Patient admits to using alcohol as noted above, smokes cigarettes daily." Hospital course: Upon admission to the unit patient was directable and agreeable to commence treatment and signed adult voluntary form . Patient got along well with other patients on the unit and followed unit protocol. Patient was compliant with the medications and denied any side effects throughout hospital course. Patient was started on paliperidone by mouth 3 mg daily at bedtime for psychosis/mood stabilization/sleep, trazodone when necessary for sleep, Zoloft 50 mg daily for mood/anxiety. librium shceuded will be decreased for etoh withdrawal. was on ciwa protocol with prn ativan. Patient spoke of his stressors and engaged in therapy both group and individual. Patient began having fever and feeling unwell, he was tested on the unit for covid and was positive. Patient was transferred off of the unit to the medical floors. Patient will be continued to be followed by procedure writer for psychiatric follow-up. Mental status exam: Please refer to mental status exam from procedure writer's aggressive note on 05/17 Impression: Schizoaffective disorder, depressive type Alcohol use disorder Nicotine dependence Plan: -Patient will be transferred today to the medical floors for treatment of covid. Patient will be continued to be followed by procedure writer for psychiatric management. Continue with current medications. Allergies Allergy/AdvReac Type Severity Reaction Status Date / Time No Known Allergies Allergy Verified 05/16/23 00:35 Laboratory Results WBC 5.7 k/uL (3.8-10.6) 05/16/23 09: RBC 4.60 m/uL (4.30-5.90) 05/16/23 09:27 Hgb 15.6 gm/dL (13.0-17.5) 05/16/23 09: Hct 45.9 % (39.0-53.0) 05/16/23 09: MCV 99.7 fL (80.0-100.0) 05/16/23 09: MCH 34.0 pg (25.0-35.0) 05/16/23 09: MCHC 34.1 g/dL (31.0-37.0) 05/16/23 09: RDW 12.6 % (11.5-15.5) 05/16/23 09: Plt Count 191 k/uL (150-450) 05/16/23 09: MPV 9.3 05/16/23 09:27 Neutrophils % 69 % 05/16/23 09:27 Lymphocytes % 21 % 05/16/23 09:27 Monocytes % 7 % 05/16/23 09:27 Eosinophils % 2 % 05/16/23 09:27 Basophils % 1 % 05/16/23 09:27 Neutrophils # 3.9 k/uL (1.3-7.7) 05/16/23 09:27 Lymphocytes # 1.2 k/uL (1.0-4.8) 05/16/23 09:27 Monocytes # 0.4 k/uL (0-1.0) 05/16/23 09:27 Eosinophils # 0.1 k/uL (0-0.7) 05/16/23 09:27 Basophils # 0.0 k/uL (0-0.2) 05/16/23 09:27 Sodium 137 mmol/L (137-145) 05/16/23 09:27 Potassium 4.1 mmol/L (3.5-5.1) 05/16/23 09:27 Chloride 93 mmol/L (98-107) L 05/16/23 09:27 Carbon Dioxide 32 mmol/L (22-30) H 05/16/23 09:27 Anion Gap 12 mmol/L 05/16/23 09:27 BUN 8 mg/dL (9-20) L 05/16/23 09:27 Creatinine 0.96 mg/dL (0.66-1.25) 05/16/23 09:27 Est GFR (CKD-EPI)AfAm >90 (>60 ml/min/1.73 sqM) 05/16/23 09:27 Est GFR (CKD-EPI)NonAf >90 (>60 ml/min/1.73 sqM) 05/16/23 09:27 Glucose 87 mg/dL (74-99) 05/16/23 09:[address] Glu mg/dL 105 mg/dL 05/16/23 09:27 Hemoglobin A1c 5.3 % (<=6.0) 05/16/23 09:27 Calcium 10.0 mg/dL (8.4-10.2) 05/16/23 09:27 Total Bilirubin 1.9 mg/dL (0.2-1.3) H 05/16/23 09:27 AST 50 U/L (17-59) 05/16/23: ALT 40 U/L (4-49) 05/16/23: Alkaline Phosphatase 85 U/L (38-126) 05/16/23: Total Protein 7.3 g/dL (6.3-8.2) 05/16/23: Albumin 4.5 g/dL (3.5-5.0) 05/16/23: Triglycerides 155.00 mg/dL (0.00-149.00) H 05/16/23: Cholesterol 190.00 mg/dL (0.00-200.00) 05/16/23: LDL Cholesterol, Calc 108.5 mg/dL (0.0-131.0) 05/16/23: VLDL Cholesterol, Calc 31.00 mg/dL (5.00-40.00) 05/16/23: HDL Cholesterol 50.50 mg/dL (40.00-60.00) 05/16/23: Cholesterol/HDL Ratio 3.76 Ratio 05/16/23: TSH 2.280 mIU/L (0.465-4.680) 05/16/23: Urine Color Yellow 05/15/23 19:00 Urine Appearance Clear (Clear) 05/15/23 19: Urine pH 8.0 (5.0-8.0) 05/15/23 19: Ur Specific [place] 1.025 (1.001-1.035) 05/15/23 19:00 Urine Protein 1+ (Negative) H 05/15/23 19:00 Urine Glucose (UA) 4+ (Negative) H 05/15/23 19:00 Urine Ketones Trace (Negative) H 05/15/23 19:00 Urine Blood Negative (Negative) 05/15/23 19: Urine Nitrite Negative (Negative) 05/15/23 19: Urine Bilirubin Negative (Negative) 05/15/23 19: Urine Urobilinogen 3.0 mg/dL (<2.0) 05/15/23 19: Ur Leukocyte Esterase Negative (Negative) 05/15/23 19: Urine RBC <1 /hpf (0-5) 05/15/23 19: Urine WBC 2 /hpf (0-5) 12/15/23 19:00 Urine Mucus Rare /hpf (None) H 05/15/23 19:00 Urine Opiates Screen Not Detected (NotDetected) 05/15/23 16:22 Ur Oxycodone Screen Not Detected (NotDetected) 05/15/23 16:22 Urine Methadone Screen Not Detected (NotDetected) 05/15/23 16:22 Ur Propoxyphene Screen Not Detected (NotDetected) 05/15/23 16:22 Ur Barbiturates Screen Not Detected (NotDetected) 05/15/23 16:22 U Tricyclic Antidepress Not Detected (NotDetected) 05/15/23 16:22 Ur Phencyclidine Scrn Not Detected (NotDetected) 05/15/23 16:22 Ur Amphetamines Screen Not Detected (NotDetected) 05/15/23 16:22 U Methamphetamines Scrn Not Detected (NotDetected) 05/15/23 16:22 U Benzodiazepines Scrn Not Detected (NotDetected) 05/15/23 16:22 Urine Cocaine Screen Not Detected (NotDetected) 05/15/23 16:22 U Marijuana (THC) Screen Not Detected (NotDetected) 05/15/23 16:22 SARS-CoV-2 (PCR) Detected (Not Detectd) A 05/17/23 17:20 Vital Signs Temp 98.0 F 05/17/23 19:00 Pulse 127 H 05/17/23 19:00 Resp 18 05/17/23 19:00 BP 111/65 05/17/23 19:00 Pulse Ox 96 05/15/23 14:33 FiO2 Intake & Output 05/17/23 05/18/23 05/18/23 18:59 06:59 18:59 Weight 77.6 kg Patient Condition at Discharge: Stable Plan - Discharge Summary Discharge Rx Participant: Yes New Discharge Prescriptions: No Action No Known Home Medications Discharge Medication List No Known Home Medications 05/15/23 [History] Follow up Appointment(s)/Referral(s): Zelalem Kramer MD [Primary Care Provider] - 1-2 days Activity/Diet/Wound Care/Special Instructions: Avoid the use of street drugs and alcohol. Take all medications as prescribed. When you are in need of refills on your medications, please contact your medical provider and/or outpatient psychiatrist/provider to have this done. Please go to your scheduled outpatient appointment for aftercare treatment. If symptoms return or become worse, call the crisis line at and/or go to the nearest emergency room for evaluation. National Suicide Hotline 988. Discharge Disposition: ADMITTED IP TO THIS HOSP
== END 2023-05-17 19:50 | disposition short-term general hospital (02) | DRG 885 ==
LOC: EC 14:26 → 3MHU 20:48
PROVIDERS: ADMIT Psychiatry & Neurology Psychiatry; ATTEND Psychiatry & Neurology Psychiatry
DX: F25.1 Schizoaffective disorder, depressive type (principal); U07.1 COVID-19; F10.239 Alcohol dependence with withdrawal, unspecified; R45.851 Suicidal ideations; F17.210 Nicotine dependence, cigarettes, uncomplicated; F31.9 Bipolar disorder, unspecified; F43.10 Post-traumatic stress disorder, unspecified; Z79.899 Other long term (current) drug therapy
CPT/HCPCS: 80053; 80061; 80306; 81001; 82075; 83036; 84443; 85025; 87635; 99285

== ENCOUNTER 2023-05-17 18:32 | Inpatient (IN) | payer MEDICAID, MEDICARE ==
[2023-05-17] MEDS ORDERED: LORazepam 1 MG TAB PO PRN (20:05)
[2023-05-17] MEDS ORDERED: traZODone HCL 50 MG TAB PO PRN (20:05)
[2023-05-17] MEDS ORDERED: MAG HYDROX/AL HYDROX/SIMETH 30 ML CUP PO PRN (20:05)
[2023-05-17] MEDS ORDERED: haloperidoL 5 MG TAB PO PRN (20:05)
[2023-05-17] MEDS ORDERED: MAGNESIUM HYDROXIDE 2,400 MG/30 ML CUP PO PRN (20:05)
[2023-05-17] MEDS ORDERED: HALOPERIDOL LACTATE 5 MG/ML 1 ML VIAL IM PRN (20:05)
[2023-05-17] MEDS ORDERED: LORazepam 2 MG/ML INJ IM PRN (20:05)
[2023-05-17] MEDS: SODIUM CHLORIDE 0.9% 1,000 ML IV SCH (22:22)
[2023-05-17] MEDS: PALIPERIDONE 3 MG TAB.ER.24 PO SCH (22:22)
[2023-05-18] MEDS: ACETAMINOPHEN TAB 325 MG TAB PO PRN ×2 (00:57→15:11)
[2023-05-18] MEDS: IBUPROFEN 600 MG TAB PO PRN ×2 (02:09→16:23)
[2023-05-18] MEDS: SODIUM CHLORIDE 0.9% 1,000 ML IV SCH ×2 (06:39→18:09)
[2023-05-18] MEDS: NICOTINE 14MG/24HR PATCH TRANSDERM SCH (08:42)
[2023-05-18] MEDS: ZINC SULFATE 220 MG CAP PO SCH (08:42)
[2023-05-18] MEDS: CHOLECALCIFEROL 25 MCG (1000 IU) TABLET PO SCH (08:42)
[2023-05-18] MEDS: SERTRALINE 50 MG TAB PO SCH (08:43)
[2023-05-18] MEDS: ASCORBIC ACID 500 MG TAB PO SCH (08:43)
[2023-05-18 09:02] LABS: Basophils # (A) 0.02 X 10*3/uL (0.00-0.10); Basophils % (A) 0.5 %; Eosinophils # (A) 0.02 X 10*3/uL (0.04-0.35); Eosinophils % (A) 0.5 %; HCT 39.6 % (39.6-50.0); HGB 13.2 g/dL (13.0-17.0); Lymphocytes # (A) 0.64 X 10*3/uL (0.90-5.00); Lymphocytes % (A) 14.4 %; MCH 32.8 pg (27.0-32.0); MCHC 33.3 g/dL (32.0-37.0); MCV 98.5 FL (80.0-97.0); Mean Platelet Volume 11.5 FL (9.5-12.2); Monocytes # (A) 0.92 X 10*3/uL (0.20-1.00); Monocytes % (A) 20.8 %; NRBC Per 100 WBC 0 X 10*3/uL (0.00-0.01); Neutrophils # (A) 2.82 X 10*3/uL (1.80-7.70); Neutrophils % (A) 63.6 %; Platelet Count 141 X 10*3/uL (140-440); RBC 4.02 X 10*6/uL (4.40-5.60); RDW 12.9 % (11.5-14.5); WBC 4.43 X 10*3/uL (4.50-10.00)
[2023-05-18 09:34] LABS: Blood Urea Nitrogen 10.3 mg/dL (9.0-27.0); Glucose 92 mg/dL (70-110); LDH 161 U/L (120-246)
[2023-05-18 09:35] LABS: ALT 31 U/L (10-49); AST 29 U/L (14-35); Albumin 4.1 g/dL (3.8-4.9); Albumin/Globulin Ratio 2.16 Ratio (1.60-3.17); Alkaline Phosphatase 69 U/L (41-126); Bilirubin, Conjugated <0.20 mg/dL (0.20-0.40); Bilirubin,Unconjugated >0.20 mg/dL (0.20-1.00); Calcium 8.9 mg/dL (8.7-10.3); Carbon Dioxide 23.6 mmol/L (21.6-31.8); Chloride 102 mmol/L (96-109); Globulin 1.9 g/dL (1.6-3.3); Potassium 3.8 mmol/L (3.5-5.5); Sodium 138 mmol/L (135-145); Total Bilirubin 0.4 mg/dL (0.3-1.2)
--- NOTE | 2023-05-18 10:38 | P.HPIM ---
History of Present Illness H&P Date: 05/18/23 Chief Complaint: Fever, positive Covid This is a 33-year-old gentleman admitted under voluntary status to mental health unit for stabilization of schizoaffective disorder, depressive type, alcohol use disorder, nicotine dependence. Developed fevers, tested positive for Covid yesterday. Asymptomatic with the exception of minimal nonproductive cough. Denies chest pain, palpitations or shortness of breath. CRP 0.6 LDH 161, pro calcitonin 0.05. Maintained on Covid cocktail. T-max 101.8, normal WBC. Renal function stable. Continue O2 sats in the high 90s on room air. Review of Systems Constitutional: Positive fevers. Cardio vascular: denied any chest pain, palpitations Gastrointestinal denied any nausea vomiting Pulmonary: Denied any shortness of breath cough Neurologic denied any new focal deficits ROS Statement: Those systems with pertinent positive or pertinent negative responses have been documented in the HPI. ROS Other: All systems not noted in ROS Statement are negative. Past Medical History Past Medical History: No Reported History History of Any Multi-Drug Resistant Organisms: None Reported Past Surgical History: Tonsillectomy Additional Past Surgical History / Comment(s): oral Past Psychological History: Anxiety, Bipolar, Depression, PTSD, Schizophrenia Smoking Status: Current every day smoker Past Alcohol Use History: Abuse, Daily, Heavy Additional Past Alcohol Use History / Comment(s): HX of ETOH abuse and substance abuse. Rehab 4 years ago Past Drug Use History: Marijuana Medications and Allergies Home Medications Medication Instructions Recorded Confirmed Type No Known Home Medications 05/15/23 05/17/23 History Allergies Allergy/AdvReac Type Severity Reaction Status Date / Time No Known Allergies Allergy Verified 05/16/23 00:35 Physical Exam Vitals: Vital Signs Temp Pulse Resp BP Pulse Ox 05/18/23 07:27 98.0 F 66 20 112/71 97 05/18/23 02:07 100.3 F H 05/18/23 01:28 101.8 F H 108 H 17 122/77 97 05/17/23 20:20 100.3 F H 100 16 115/68 100 Intake and Output 05/17/23 05/18/23 05/18/23 22:59 06:59 14:59 Other: Voiding Method Toilet # Voids 2 Weight 77.6 kg PHYSICAL EXAM: VITAL SIGNS: As above GENERAL: Alert and oriented 3, no acute distress, sitting up in bed, not agitated, cooperative. HEENT: Normocephalic, Conjunctivae normal. eyes normal. NECK: Supple, No JVD. No thyroid enlargement. No LNs CARDIOVASCULAR: S1, S2 regular. No murmur RESPIRATION: Unlabored ,Breath sounds diminished in the bases. No rhonchi or crackles. No bronchial breathing. ABDOMEN: Soft, nondistended, nontender . No guarding. no masses palpable. No ascites, No hepatosplenomegaly.Bowel sounds heard. LEGS: No edema. no swelling PSYCHIATRY: Alert and oriented X3, mood and affect normal. NERVOUS SYSTEM: Cranial N 2-12 grossly normal. Moves all 4 limbs. No focal deficits. Strength and sensation grossly intact.. Skin: Warm and dry, no rash Results CBC & Chem 7: 05/18/23 04:13 05/18/23 04:13 Labs: Abnormal Lab Results - Last 24 Hours (Table) 05/18/23 05/18/23 Range/Units 04:13 04:13 WBC 4.43 L (4.50-10.00) X 10*3/uL RBC 4.02 L (4.40-5.60) X 10*6/uL MCV 98.5 H (80.0-97.0) FL MCH 32.8 H (27.0-32.0) pg Lymphocytes # 0.64 L (0.90-5.00) X 10*3/uL Eosinophils # 0.02 L (0.04-0.35) X 10*3/uL Anion Gap 12.40 H (4.00-12.00) mmol/L BUN/Creatinine Ratio 10.30 L (12.00-20.00) Ratio Total Protein 6.0 L (6.2-8.2) g/dL Thrombosis Risk Factor Assmnt - Choose All That Apply Any of the Below Risk Factors Present?: No Other Risk Factors: No Other congenital or acquired thrombophilia - If yes, enter type in comment: No Thrombosis Risk Factor Assessment Level: Very Low Risk Assessment and Plan Assessment: Acute Covid Infection Schizoaffective disorder, depressive type Alcohol use disorder Nicotine dependence Plan: Continue on current medication regime ,monitoring and symptomatic treatment. Infectious disease consult in place. Maintained on Covid Cocktail with the exception of steroids to avoid psychosis. WA protocol.Follow closely with psychiatry. The impression and plan of care has been dictated as directed. : I performed a history and examination of this patient, discussed the same with the dictator. I agree with the dictator's note ,documented as a scribe. Any additional findings or plans will be noted.
--- NOTE | 2023-05-18 13:20 | P.CN ---
Psychiatric Consult - . Consult date: 05/18/23 Consult:: 05/18/23 11:48 IDENTIFYING DATA: Patient is a 33-year-old male, currently lives alone in a duplex, he single, he collects SSD. Reason for consultation: Continued psychiatric management while on the medical floors HPI: patient was seen and admitted to the [facility] on 05/16 and as per writers psych assessment at that time "Patient presented to the hospital yesterday complaining of depression and suicidal ideations. Apparently patient was taking care of his home, has a history of mental illness. He was also endorsing suicidal ideations and depression. Patient's urine drug screen was negative. He was fairly concrete, hesitant in his speech, he is also fairly vague about his symptoms. He states that his parents are "toxic people". He claims that they have been having significant financial issues between them, he believes that his parents are taking most of his money. He states his mother is his payee. He claims that his parents are also his landlord and are very controlling of him. He states that he "gave up on my house" and states that he left [place]. He claims that he has been mainly isolative. States that he has been diagnosed with Schizophrenia in the past and has been going [facility]. He has been off his psychiatric medications for several months now. He states that he is also been drinking alcohol about 2 pints a day, has a history of withdrawals. States that he believes that his parents are trying to move him into a hotel and get him out of the house. He states that he is feeling depressed, anxious and hopeless. He claims that he does have auditory hallucinations however they are not as bad as they used to be, denying any visual hallucinations. Patient denies any suicidal or homicidal ideations intent or plan. Patient denies any flight of ideas racing thoughts and increased in goal directed behavior. Patient admits to using alcohol as noted above, smokes cigarettes daily." Patient was seen today laying in bed in agreeable to bid writer. He states that he feels a bit better today. C laims that his mood and anxiety even improving. He continues to endorse feeling anxious about his situation and believes he is homeless at this time as his parents will "kick me out" of his duplex where he was living. He states that he does not know where he will be going which is causing him anxiety. States that he is able to sleep. Last night. In that his mood is improving. At this time is denying any auditory or visual hallucinations. Denying any suicidal or homicidal ideations intent or plan. PAST PSYCHIATRIC HISTORY: Patient states that he has history of schizophrenia. Patient claims that he used to be on Prolixin D and several other antipsychotics in the past including Zyprexa however cannot remember most of them. Patient claims that he was last admitted to [facility] for psychiatric purposes several years ago. Patient denies any current psychiatric outpatient follow-up. Patient denies any history of suicide attempts in the past. Past Medical History: No Reported History History of Any Multi-Drug Resistant Organisms: None Reported Past Surgical History: Tonsillectomy Additional Past Surgical History / Comment(s): oral Past Psychological History: Anxiety, Bipolar, Depression, PTSD, Schizophrenia Smoking Status: Current every day smoker Past Alcohol Use History: Abuse, Daily, Heavy Past Drug Use History: Marijuana ALLERGIES: as per EMR CHEMICAL DEPENDENCY HISTORY: as per HPI FAMILY PSYCHIATRIC/SUBSTANCE USE HISTORY: Things that his father has PTSD SOCIAL HISTORY: Patient was born and raised in [place]. He states that he completed some college. Claims that he does not have any legal history. States that he currently lives alone in a duplex, he is single, he has no kids. He collects SSD.. MENTAL STATUS EXAM: General Appearance: Patient appears to be tall, thin, unshaven, longer hair, stated age is alert, directable, and attempts to cooperate. Patient appears to have proven hygiene and grooming. Behavior: Patient is seated without any agitated behavior. Appears somewhat anxious yet cooperative Speech: Patient's speech is fluent and nonpressured.Hesitant and soft tone, improving Mood/Affect: Patient reports their mood is "mainly anxious", affect is congruent and constricted. Improving Suicidality/Homicidality: Patient denies having any homicidal ideation intent or plan. Denies any suicidal ideations intent or plan Perceptions: Patient denies any visual hallucinations and denies any auditory hallucinations Though content/process: There is no evidence of any delusional thought content and thought process is linear and goal-directed. Memory and concentration: AOX3, grossly intact for the purposes of this session. Can spell "WORLD" backwards Judgment and insight: Improving mildly IMPRESSIONS: Schizoaffective disorder, depressive type Alcohol use disorder Nicotine dependence PLAN: -At this time patient DOES meet criteria for inpatient psychiatric admission however due to having COVID, patient is admitted medically and will be followed by bid writer for psychiatric mgt. -Would recommend the following medication changes/additions: Continue with current psychiatric medications as prescribed with the exception of decreasing Librium to 10 mg 3 times a day and continuing to taper down for alcohol withdrawal. -CIWA protocol with PRN Ativan for alcohol withdrawal. Continue to monitor vital signs. -Cannot leave AMA at this time. Patient will need a petition and certification if attempting to leave AMA. -family support worker to provide patient with outpatient mental health/psychiatry resources for appropriate follow up upon discharge. family support worker also to assist patient with discharge planning as apparently patient states that he is kicked out of his apartment where he was living. His parents are his payee. -family support worker to provide patient substance use treatment resources including AA/NA meetings in the community. -family support worker to provide patient with access line number to call for inpatient substance rehab -Communicated plan to patient's nurse. Attempted to call social work supervisor however left voicemail with details of plan and possibly discharge in 1-2 days. -Will continue to follow along tomorrow and likely sign off tomorrow. -Please contact with any questions. 05/18/23 13:17
--- NOTE | 2023-05-18 15:28 | XR ---
EXAMINATION TYPE: XR chest 1V portable DATE OF EXAM: 05/18/2023 COMPARISON: None INDICATION: Fever TECHNIQUE: Frontal views of the chest were obtained FINDINGS: The heart size is normal. The pulmonary vasculature is normal. The lungs are clear. IMPRESSION: 1. No acute pulmonary process.
[2023-05-18] MEDS: PALIPERIDONE 3 MG TAB.ER.24 PO SCH (22:26)
--- NOTE | 2023-05-18 23:20 | P.CONS ---
History of Present Illness - Reason for Consult Consult date: 05/18/23 - History of Present Illness Patient is a 33-year-old male with a past medical history significant for anxiety bipolar depression PTSD shizophrenia current everyday smoker, presented to the mental health unit 05/16/2023 concerning for depression and suicidal ideation patient mention on presentation to the mental health unit he did not have any URI symptoms or fever and chills and apparently the patient did have a COVID test that was negative yesterday morning the patient mention he started not feeling well he did have a rigors and chills did have some sore throat and URI symptoms patient denies having any chest pain he did have a mild cough but no sputum production no nausea no vomiting no abdominal pain and no diarrhea patient did have a fever of 101 F, COVID test done on the mental health unit which came back positive and the patient was subsequently transferred to the medical unit patient did have a fever after midnight however afebrile this morning patient is currently breathing comfortably on room air patient denies having any chest pain he did have mild cough with occasional clear sputum no hemoptysis denies any pleuritic chest pain no nausea no vomiting no abdominal pain no diarrhea patient did have white count of 4.43 creatinine is 1.0 liver exams are normal CRP 0.60 infectious disease was consulted for further management, patient mention has not received vaccination for COVID-19 Past Medical History Past Medical History: No Reported History History of Any Multi-Drug Resistant Organisms: None Reported Past Surgical History: Tonsillectomy Additional Past Surgical History / Comment(s): oral Past Psychological History: Anxiety, Bipolar, Depression, PTSD, Schizophrenia Smoking Status: Current every day smoker Past Alcohol Use History: Abuse, Daily, Heavy Additional Past Alcohol Use History / Comment(s): HX of ETOH abuse and substance abuse. Rehab 4 years ago Past Drug Use History: Marijuana Medications and Allergies Home Medications Medication Instructions Recorded Confirmed Type No Known Home Medications 05/15/23 05/17/23 History Allergies Allergy/AdvReac Type Severity Reaction Status Date / Time No Known Allergies Allergy Verified 05/16/23 00:35 Physical Exam Vitals: Vital Signs Temp Pulse Resp BP Pulse Ox 05/18/23 07:27 98.0 F 66 20 112/71 97 05/18/23 02:07 100.3 F H 05/18/23 01:28 101.8 F H 108 H 17 122/77 97 05/17/23 20:20 100.3 F H 100 16 115/68 100 Intake and Output 05/17/23 05/18/23 05/18/23 22:59 06:59 14:59 Other: Voiding Method Toilet # Voids 2 Weight 77.6 kg Results CBC & Chem 7: 05/18/23 04:13 05/18/23 04:13 Labs: Abnormal Lab Results - Last 24 Hours (Table) 05/18/23 05/18/23 Range/Units 04:13 04:13 WBC 4.43 L (4.50-10.00) X 10*3/uL RBC 4.02 L (4.40-5.60) X 10*6/uL MCV 98.5 H (80.0-97.0) FL MCH 32.8 H (27.0-32.0) pg Lymphocytes # 0.64 L (0.90-5.00) X 10*3/uL Eosinophils # 0.02 L (0.04-0.35) X 10*3/uL Anion Gap 12.40 H (4.00-12.00) mmol/L BUN/Creatinine Ratio 10.30 L (12.00-20.00) Ratio Total Protein 6.0 L (6.2-8.2) g/dL Assessment and Plan Plan: 1patient with acute COVID-19 infection this patient predominantly URI symptoms patient is currently not hypoxic lungs were clear to auscultation more likely mild illness and not behaving as a COVID-pneumonia 2-we will check a chest x-ray to make sure evidence of any pneumonia 3-check a CRP and a procalcitonin 4-treatment is mostly supportive with vitamin C zinc Lovenox, no need for steroids or remdesivir 5-droplet isolation We will follow on clinical condition and cultures to further adjust medication if needed Thank you for this consultation we will follow the patient along with you Dictation was produced using [email or web address] dictation software. please excuse any grammatical, word or spelling errors. Time with Patient: Greater than 30
[2023-05-19] MEDS: SODIUM CHLORIDE 0.9% 1,000 ML IV SCH ×3 (06:01→20:14)
[2023-05-19] MEDS: ZINC SULFATE 220 MG CAP PO SCH (08:53)
[2023-05-19] MEDS: ASPIRIN 81 MG PO SCH (08:53)
[2023-05-19] MEDS: NICOTINE 14MG/24HR PATCH TRANSDERM SCH (08:53)
[2023-05-19] MEDS: CHOLECALCIFEROL 25 MCG (1000 IU) TABLET PO SCH (08:53)
[2023-05-19] MEDS: ASCORBIC ACID 500 MG TAB PO SCH (08:53)
[2023-05-19] MEDS: SERTRALINE 50 MG TAB PO SCH (08:53)
--- NOTE | 2023-05-19 14:49 | P.PN ---
Progress Note - Text Progress Note Date: 05/19/23 Interval history: Patient was seen today for psychiatric follow-up. Patient was laying in bed, agreeable to speak data analyst report writer. He continues to have a constricted affect however this is improving. He continues to be fairly concrete his insight and his answers however was appropriate. Currently he claims that he still does not have a place to go and does not want to involve his parents. His parents are his payee. He more future oriented today, not endorsing any side effects or problems with his medications. He has been taking his medications as prescribed. States that he slept fairly last night, continues to have some mild tiredness during the day however this is improving. Denying any alcohol withdrawal symptoms. Denying any anxiety or depression. He claims his appetite is fair. Denying any auditory or visual hallucinations. Denying any suicidal or homicidal ideations intent or plan. MENTAL STATUS EXAM: General Appearance: Patient appears to be tall, thin, unshaven, longer hair, stated age is alert, directable, and attempts to cooperate. Patient appears to have improved hygiene and grooming. Behavior: Patient is seated without any agitated behavior. Her cooperative today Speech: Patient's speech is fluent and nonpressured. soft tone, improving Mood/Affect: Patient reports their mood is "better", affect is congruent and constricted. Improving Suicidality/Homicidality: Patient denies having any homicidal ideation intent or plan. Denies any suicidal ideations intent or plan Perceptions: Patient denies any visual hallucinations and denies any auditory hallucinations Though content/process: There is no evidence of any delusional thought content and thought process is linear and goal-directed. More future oriented Memory and concentration: AOX3, grossly intact for the purposes of this session Judgment and insight: Improving mildly IMPRESSIONS: Schizoaffective disorder, depressive type Alcohol use disorder Nicotine dependence PLAN: -At this time patient DOES meet criteria for inpatient psychiatric admission however due to having COVID, patient is admitted medically and will be followed by data analyst report writer for psychiatric mgt. -Would recommend the following medication changes/additions: Continue with current psychiatric medications as prescribed with the exception of d/c Librium today. patient is declining any anti cravings meds for etoh use. -hide and skin processing worker to provide patient with outpatient mental health/psychiatry resources for appropriate follow up upon discharge. hide and skin processing worker also to assist patient with discharge planning as apparently patient states that he is kicked out of his apartment where he was living. His parents are his payee. Will work to see if parents would be able to get patient some of his money to stay in a hotel/motel for the next few days until he is able to get more permanent living arrangement. -hide and skin processing worker to provide patient substance use treatment resources including AA/NA meetings in the community. -hide and skin processing worker to provide patient with access line number to call for inpatient substance rehab and also follow up information for [facility] for psych follow up. -Communicated plan to patient's nurse and SW today about plan and recs. -at this time psychiatry will sign off -Please contact with any questions.
--- NOTE | 2023-05-19 15:52 | P.PN ---
Subjective Progress Note Date: 05/19/23 H&P Date: 05/18/23 Chief Complaint: Fever, positive Covid This is a 33-year-old gentleman admitted under voluntary status to mental health unit for stabilization of schizoaffective disorder, depressive type, alcohol use disorder, nicotine dependence. Developed fevers, tested positive for Covid yesterday. Asymptomatic with the exception of minimal nonproductive cough. Denies chest pain, palpitations or shortness of breath. CRP 0.6 LDH 161, pro calcitonin 0.05. Maintained on Covid cocktail. T-max 101.8, normal WBC. Renal function stable. Continue O2 sats in the high 90s on room air. 05/19/23 dilated by infectious disease with recommendations noted and appreciated. Maintained on Covid Cocktail,gentle IV fluid hydration. T-max 100. Denies chest pain, palpitations or shortness of breath. Minimal productive cough with clear sputum production. Objective - Vital Signs Vital signs: Vital Signs Temp 98.8 F 05/19/23 14:00 Pulse 83 05/19/23 14:00 Resp 17 05/19/23 14:00 BP 111/72 05/19/23 14:00 Pulse Ox 98 05/19/23 14:00 FiO2 Intake & Output 05/18/23 05/19/23 05/19/23 18:59 06:59 18:59 Intake Total 1200 1200 Balance 1200 1200 Intake: Intake, IV Titration 1200 1200 Amount Sodium Chloride 0.9% 1, 1200 1200 000 ml @ 100 mls/hr IV . Q10H [facility] Rx#:[id number] Other: # Voids 2 2 1 - Exam PHYSICAL EXAM: VITAL SIGNS: As above GENERAL: Alert and oriented 3, no acute distress, laying in bed. HEENT: Normocephalic, Conjunctivae normal. eyes normal. NECK: Supple, No JVD. CARDIOVASCULAR: S1, S2 regular. No murmur RESPIRATION: Unlabored ,Breath sounds diminished in the bases. No rhonchi or crackles. No bronchial breathing. ABDOMEN: Soft, nondistended, nontender . No guarding. +BS LEGS: No edema. no swelling PSYCHIATRY: Alert and oriented X3, mood and affect normal. NERVOUS SYSTEM: Cranial N 2-12 grossly normal. No focal deficits. Skin: Warm and dry, no rash - Labs CBC & Chem 7: 05/18/23 04:13 05/18/23 04:13 Assessment and Plan Assessment: Acute Covid Infection Schizoaffective disorder, depressive type Alcohol use disorder Nicotine dependence Plan: Continue on current medication regime ,monitoring and symptomatic treatment. Continues on Covid Cocktail. CIWA protocol.Follow closely with psychiatry and infectious disease. The impression and plan of care has been dictated as directed. : I performed a history and examination of this patient, discussed the same with the dictator. I agree with the dictator's note ,documented as a scribe. Any additional findings or plans will be noted.
[2023-05-19] MEDS: PALIPERIDONE 3 MG TAB.ER.24 PO SCH (20:07)
[2023-05-20] MEDS: NICOTINE 14MG/24HR PATCH TRANSDERM SCH (08:12)
[2023-05-20] MEDS: ASCORBIC ACID 500 MG TAB PO SCH (08:13)
[2023-05-20] MEDS: CHOLECALCIFEROL 25 MCG (1000 IU) TABLET PO SCH (08:13)
[2023-05-20] MEDS: ZINC SULFATE 220 MG CAP PO SCH (08:13)
[2023-05-20] MEDS: SERTRALINE 50 MG TAB PO SCH (08:13)
[2023-05-20] MEDS: ASPIRIN 81 MG PO SCH (08:13)
--- NOTE | 2023-05-20 15:39 | P.PN ---
Subjective Progress Note Date: 05/20/23 H&P Date: 05/18/23 Chief Complaint: Fever, positive Covid This is a 33-year-old gentleman admitted under voluntary status to mental health unit for stabilization of schizoaffective disorder, depressive type, alcohol use disorder, nicotine dependence. Developed fevers, tested positive for Covid yesterday. Asymptomatic with the exception of minimal nonproductive cough. Denies chest pain, palpitations or shortness of breath. CRP 0.6 LDH 161, pro calcitonin 0.05. Maintained on Covid cocktail. T-max 101.8, normal WBC. Renal function stable. Continue O2 sats in the high 90s on room air. 05/19/23 dilated by infectious disease with recommendations noted and appreciated. Maintained on Covid Cocktail,gentle IV fluid hydration. T-max 100. Denies chest pain, palpitations or shortness of breath. Minimal productive cough with clear sputum production. 05/20/2023 significant clinical improvement. Afebrile. Denies chest pain, palpitations or shortness of breath. Occasional nonproductive cough. Reports anxiety over his housing issue. Objective - Vital Signs Vital signs: Vital Signs Temp 97.8 F 05/20/23 12:38 Pulse 106 H 05/20/23 12:38 Resp 20 05/20/23 12:38 BP 120/78 05/20/23 12:38 Pulse Ox 97 05/20/23 12:38 FiO2 Intake & Output 05/19/23 05/20/23 05/20/23 18:59 06:59 18:59 Intake Total 2160 1200 Balance 2160 1200 Intake: Intake, IV Titration 1200 1200 Amount Sodium Chloride 0.9% 1, 1200 1200 000 ml @ 100 mls/hr IV . Q10H [facility] Rx#:[id number] Oral 960 Other: Voiding Method Toilet # Voids 4 3 - Exam PHYSICAL EXAM: VITAL SIGNS: As above GENERAL: Alert and oriented 3, no acute distress, laying in bed. HEENT: Normocephalic, Conjunctivae normal. eyes normal. NECK: Supple, No JVD. CARDIOVASCULAR: S1, S2 regular. No murmur RESPIRATION: Unlabored ,Breath sounds diminished in the bases. ABDOMEN: Soft, nondistended, nontender . No guarding. +BS LEGS: No edema. no swelling NERVOUS SYSTEM: Cranial N 2-12 grossly normal. No focal deficits. - Labs CBC & Chem 7: 05/18/23 04:13 05/18/23 04:13 Assessment and Plan Assessment: Acute Covid Infection Schizoaffective disorder, depressive type Alcohol use disorder Nicotine dependence Plan: Continue on current medication regime ,monitoring and symptomatic treatment. Maintained on Covid Cocktail/CIWA protocol. Medically cleared for discharge; psychiatry clearance for discharge pending. Social work assisting patient with resources for discharge. Please refer to social work docu mentation. The impression and plan of care has been dictated as directed. : I performed a history and examination of this patient, discussed the same with the dictator. I agree with the dictator's note ,documented as a scribe. Any additional findings or plans will be noted.
[2023-05-20] MEDS: PALIPERIDONE 3 MG TAB.ER.24 PO SCH (21:25)
[2023-05-20] MEDS: SODIUM CHLORIDE 0.9% 1,000 ML IV SCH (22:19)
[2023-05-21 00:40] VITALS: RESP 18
[2023-05-21] MEDS: SODIUM CHLORIDE 0.9% 1,000 ML IV SCH (05:38)
[2023-05-21 08:49] VITALS: BP 114/76; PULSE 90; TEMP 98.6
[2023-05-21] MEDS: SERTRALINE 50 MG TAB PO SCH (08:57)
[2023-05-21] MEDS: ASPIRIN 81 MG PO SCH (08:57)
[2023-05-21] MEDS: CHOLECALCIFEROL 25 MCG (1000 IU) TABLET PO SCH (08:57)
[2023-05-21] MEDS: ASCORBIC ACID 500 MG TAB PO SCH (08:57)
[2023-05-21] MEDS: ZINC SULFATE 220 MG CAP PO SCH (08:57)
[2023-05-21] MEDS: NICOTINE 14MG/24HR PATCH TRANSDERM SCH (08:59)
--- NOTE | 2023-05-21 09:52 | P.PN ---
Subjective Progress Note Date: 05/19/23 Principal diagnosis: Reason for follow-up is COVID-19 Patient is a 33-year-old male with a past medical history significant for anxiety bipolar depression PTSD shizophrenia current everyday smoker, presented to the mental health unit 05/16/2023 concerning for depression and suicidal ideation, patient did develop fever on the mental health unit and was diagnosed with the COVID-19 transferred to the medical floor. On today's evaluation that is 05/19/2023 patient did have resolution of his fever and is afebrile this morning the patient is breathing comfortably room he denies any chest pain shortness with occasional cough no nausea no vomiting no abdominal pain no diarrhea. Patient did have white count of 4.43 and a creatinine of 1.0 CRP is 1.4 Pro-Mikal 0.05 Objective - Vital Signs Vital signs: Vital Signs Temp 97.9 F 05/19/23 08:00 Pulse 88 05/19/23 08:00 Resp 17 05/19/23 08:00 BP 128/80 05/19/23 08:00 Pulse Ox 98 05/19/23 08:00 FiO2 Intake & Output 05/18/23 05/19/23 05/19/23 18:59 06:59 18:59 Intake Total 1200 1200 Balance 1200 1200 Intake: Intake, IV Titration 1200 1200 Amount Sodium Chloride 0.9% 1, 1200 1200 000 ml @ 100 mls/hr IV . Q10H [facility] Rx#:[id number] Other: # Voids 2 2 1 - Exam GENERAL DESCRIPTION: Middle-age male lying in bed in no distress RESPIRATORY SYSTEM: Unlabored breathing , decreased breath sounds at bases HEART: S1 S2 regular rate and rhythm , ABDOMEN: Soft , no tenderness EXTREMITIES: No edema feet - Labs CBC & Chem 7: 05/18/23 04:13 05/18/23 04:13 Assessment and Plan (1) COVID-19 Current Visit: Yes Status: Acute Code(s): U07.1 - COVID-19 SNOMED Code(s): 712620742 Plan: 1patient with acute COVID-19 infection this patient predominantly URI symptoms patient is currently not hypoxic lungs were clear to auscultation more likely mild illness and not behaving as a COVID-pneumonia 2chest x-ray did not show any evidence of pneumonia patient did have CRP of 1.4 and normal procalcitonin of 0.05. 3patient to continue the current supportive treatment for COVID-19 with vitamin C zinc Lovenox no need for remdesivir or steroids and continue the droplet isolation Dictation was produced using [employer] dictation software. please excuse any grammatical, word or spelling errors.
--- NOTE | 2023-05-21 09:55 | P.PN ---
Subjective Progress Note Date: 05/20/23 Principal diagnosis: Reason for follow-up is COVID-19 Patient is a 33-year-old male with a past medical history significant for anxiety bipolar depression PTSD shizophrenia current everyday smoker, presented to the mental health unit 05/16/2023 concerning for depression and suicidal ideation, patient did develop fever on the mental health unit and was diagnosed with the COVID-19 transferred to the medical floor. On today's evaluation that is 05/20/2023 patient remains to be afebrile, the patient is breathing comfortably room without the need for supplemental oxygen, the patient denies any chest pain shortness with occasional cough no nausea no vomiting no abdominal pain no diarrhea. Patient did have white count of 4.43 and a creatinine of 1.0 CRP is 1.4 Pro-Mikal 0.05, no lab draw today Objective - Vital Signs Vital signs: Vital Signs Temp 98.5 F 05/20/23 07:17 Pulse 98 05/20/23 08:14 Resp 19 05/20/23 08:14 BP 102/70 05/20/23 07:17 Pulse Ox 94 L 05/20/23 07:17 FiO2 Intake & Output 05/19/23 05/20/23 05/20/23 18:59 06:59 18:59 Intake Total 2160 1200 Balance 2160 1200 Intake: Intake, IV Titration 1200 1200 Amount Sodium Chloride 0.9% 1, 1200 1200 000 ml @ 100 mls/hr IV . Q10H [facility] Rx#:[id number] Oral 960 Other: Voiding Method Toilet # Voids 4 3 - Exam GENERAL DESCRIPTION: Middle-age male lying in bed in no distress RESPIRATORY SYSTEM: Unlabored breathing , decreased breath sounds at bases HEART: S1 S2 regular rate and rhythm , ABDOMEN: Soft , no tenderness EXTREMITIES: No edema feet - Labs CBC & Chem 7: 05/18/23 04:13 05/18/23 04:13 Assessment and Plan (1) COVID-19 Current Visit: Yes Status: Acute Code(s): U07.1 - COVID-19 SNOMED Code(s): 758759106 Plan: 1patient with acute COVID-19 infection this patient predominantly URI symptoms patient is currently not hypoxic lungs were clear to auscultation more likely mild illness and not behaving as a COVID-pneumonia 2chest x-ray did not show any evidence of pneumonia patient did have CRP of 1.4 and normal procalcitonin of 0.05. 3patient did have resolution of his fever and his respiratory status remains to be stable to continue the current supportive treatment for COVID-19, no need for steroids or remdesivir Dictation was produced using [employer] dictation software. please excuse any grammatical, word or spelling errors.
--- NOTE | 2023-05-22 20:07 | P.DS ---
Providers Date of admission: 05/17/23 18:40 Expected date of discharge: 05/21/23 Attending physician: Zelalem Kramer MD Consults: 05/17/23 20:35 Consult Physician Routine Consulting Provider: Nehal Dao Consult Reason/Comments: fever, covid Do you want consulting provider notified?: Yes, Notify in am 05/17/23 20:44 Consult Physician Routine Consulting Provider: Moiz Cobian Consult Reason/Comments: depression Do you want consulting provider notified?: Yes, Notify in am Primary care physician: Zelalem Kramer MD Hospital Course: This is a 33-year-old gentleman admitted under voluntary status to mental health unit for stabilization of schizoaffective disorder, depressive type, alcohol use disorder, nicotine dependence. Developed fevers, tested positive for Covid yesterday. Asymptomatic with the exception of minimal nonproductive cough. Denies chest pain, palpitations or shortness of breath. CRP 0.6 LDH 161, pro calcitonin 0.05. Maintained on Covid cocktail. T-max 101.8, normal WBC. Renal function stable. Continue O2 sats in the high 90s on room air. 05/19/23 dilated by infectious disease with recommendations noted and appreciated. Maintained on Covid Cocktail,gentle IV fluid hydration. T-max 100. Denies chest pain, palpitations or shortness of breath. Minimal productive cough with clear sputum production. 05/20/2023 significant clinical improvement. Afebrile. Denies chest pain, palpitations or shortness of breath. Occasional nonproductive cough. Reports anxiety over his housing issue. 05/21/2023. On day of discharge pt denies chest pain, shortness of breath. Mood and affect improved. Cleared per psychiatry. Pt recommended to follow up with his PCP upon discharge. Plan - Discharge Summary Discharge Rx Participant: Yes New Discharge Prescriptions: New Paliperidone [Invega] 3 mg PO HS #30 tab Sertraline [Zoloft] 50 mg PO DAILY #30 tab Discharge Medication List Paliperidone [Invega] 3 mg PO HS #30 tab 05/21/23 [Rx] Sertraline [Zoloft] 50 mg PO DAILY #30 tab 05/21/23 [Rx] Discharge/Stand Alone Forms: [facility], [facility], Who Do I Call?, Community Resources, Outpatient Counseling, Inp Substance Abuse Facilities Discharge Disposition: HOME SELF-CARE
== END 2023-05-21 11:26 | disposition home or self-care (01) | DRG 178 ==
LOC: 4SSUR 18:40
PROVIDERS: ADMIT Family Medicine; ATTEND Family Medicine
PROC: HZ2ZZZZ Detoxification Services for Substance Abuse Treatment (ICD-10-PCS; principal; 2023-05-17)
DX: U07.1 COVID-19 (principal); R45.851 Suicidal ideations; Z28.310 Unvaccinated for COVID-19; F25.1 Schizoaffective disorder, depressive type; F10.10 Alcohol abuse, uncomplicated; F17.210 Nicotine dependence, cigarettes, uncomplicated; F31.9 Bipolar disorder, unspecified; F43.10 Post-traumatic stress disorder, unspecified; Z59.9 Problem related to housing and economic circumstances, unspecified; Z79.52 Long term (current) use of systemic steroids; Z71.41 Alcohol abuse counseling and surveillance of alcoholic
CPT/HCPCS: 71045; 80048; 80076; 83615; 83735; 84145; 85025; 86140

== ENCOUNTER 2023-10-25 22:25 | Inpatient (IN) | payer MEDICARE, MEDICAID ==
[2023-10-25] MEDS ORDERED: HALOPERIDOL LACTATE 5 MG/ML 1 ML VIAL IM PRN (22:44)
[2023-10-25] MEDS ORDERED: haloperidoL 5 MG TAB PO PRN (22:44)
[2023-10-25] MEDS ORDERED: MAGNESIUM HYDROXIDE 2,400 MG/30 ML CUP PO PRN (22:44)
[2023-10-25] MEDS ORDERED: IBUPROFEN 600 MG TAB PO PRN (22:44)
[2023-10-25] MEDS ORDERED: LORazepam 2 MG/ML INJ IM PRN (22:44)
[2023-10-25] MEDS ORDERED: MAG HYDROX/AL HYDROX/SIMETH 355 ML BOTTLE PO PRN (22:44)
[2023-10-25] MEDS ORDERED: LORazepam 1 MG TAB PO PRN ×2 (22:44)
[2023-10-25] MEDS ORDERED: ACETAMINOPHEN TAB 325 MG TAB PO PRN (22:44)
[2023-10-25] MEDS: LORazepam 1 MG TAB PO PRN (23:27)
[2023-10-25] MEDS: QUEtiapine 50 MG TAB PO PRN (23:55)
[2023-10-26] MEDS: THIAMINE 100 MG TAB PO SCH (08:34)
[2023-10-26] MEDS: MULTIVITAMINS, THERA 1 EACH TAB PO SCH (08:34)
[2023-10-26] MEDS: NICOTINE 7MG/24HR PATCH TRANSDERM SCH (08:34)
[2023-10-26] MEDS: FOLIC ACID 1 MG TAB PO SCH (08:34)
--- NOTE | 2023-10-26 12:19 | P.HP ---
Psychiatric H&P - . H&P Date: 10/26/23 History & Physical: Allergies Allergy/AdvReac Type Severity Reaction Status Date / Time No Known Allergies Allergy Verified 10/24/23 09:01 Vital Signs Temp 98.3 F 10/25/23 23:18 Pulse 75 10/25/23 23:18 Resp 18 10/25/23 23:18 BP 179/96 10/25/23 23:18 Pulse Ox 99 10/25/23 23:18 FiO2 Intake & Output 10/25/23 10/26/23 10/26/23 18:59 06:59 18:59 Weight 86 kg 10/26/23 09:28 IDENTIFYING DATA: Patient is a 33-year-old male, currently lives alone in a duplex, he single, unemployed he collects [email or web address]. HPI: Patient presented to the hospital on 10/23. He was admitted medically due to alcohol withdrawal. As per EPS note, "patient evaluated on 5N- admitted medical d/t alcohol level upon arrival to ED 10/24/23. Patient states he "got maniac and drunk- called police on myself- got up today with some hope. I've got a lot of really nasty shit going on in my life- Salima snapped- got a little toasted and snapped." patient reports stress with his parents being his "payee", states they control everything- where he lives, how he spends his money. Patient reports noncompliance with medications, poor appetite, poor sleep. patient reports he hears negative voices. patient states he only drinks a few times a month and appears to minimize past problems with alcohol. patient unkempt with poor eye contact and rambling." Dr. Alberto completing a consult while patient was on the medical floor. As per consult note, "On my assessment, patient was found laying in bed watching TV. He appears withdrawn and irritable. His thought process is ruminative and circumstantial. He appears to be a fair historian and somewhat guarded and evasive when answering some questions. He admits to depressed mood, variable sleep with sometimes sleeping too much and sometimes sleeping too little, low energy, fair concentration, variable appetite with sometimes having appetite and sometimes not eating, and psychomotor slowing. He denies suicidal thoughts today, but reports he has had suicidal ideation on and off for years, and reports he had thoughts of "wanting this life to be over with" in the past month. He is tearful. He reports feeling hopeless and helpless. He denies feeling worthless. He reports he "hears voices" "all day everyday", and states the "hallucinations" started in 2012. He reports the voices sound "internal" as if coming from inside his head. He denies command auditory hallucinations currently. He claims he was not walking around talking to himself but that he decided to call the police for himself because he "drank too much and was freaking out". He reports family and financial stressors because he believes his parents may kick him out of their condo (reports they put a 7-day notice on his door to clean the condo or eviction?). He also reports it is stressful having his mother as his payee and feels his parents control many aspects of his life despite being his own guardian." Today, patient states he was "dealing with dumb shit, and doing dumb shit". He states that he is going through alot of "weird" stuff with his parents, coming onto his property and taking his stuff. He states the medications don't help, so he don't take them, and he just gave up. He states he is no longer having suicidal thoughts, and he denies AH/VH. He states that his appetite and sleep has been better since being in the hospital. Denies using any recreational drugs, states he drinks once a week, and he smokes cigarettes. PAST PSYCHIATRIC HISTORY: Patient states that he has history of schizophrenia. Patient claims that he used to be on Prolixin D and several other antipsychotics in the past including Zyprexa however cannot remember most of them. Patient claims that he was last admitted to this unit in May 2023. Patient denies any current psychiatric outpatient follow-up. Patient admits to history of suicide attempts in the past. Past Medical History: No Reported History History of Any Multi-Drug Resistant Organisms: None Reported Past Surgical History: Tonsillectomy Additional Past Surgical History / Comment(s): oral Past Psychological History: Anxiety, Bipolar, Depression, PTSD, Schizophrenia Smoking Status: Current every day smoker Past Alcohol Use History: Abuse, Daily, Heavy Past Drug Use History: Marijuana ALLERGIES: as per EMR CHEMICAL DEPENDENCY HISTORY: as per HPI FAMILY PSYCHIATRIC/SUBSTANCE USE HISTORY: Thinks that his father has PTSD SOCIAL HISTORY: Patient was born and raised in [place]. He states that he completed some college. Claims that he does not have any legal history. States that he currently lives alone in a duplex, he is single, he has no kids. He collects SSD.. MENTAL STATUS EXAM: General Appearance: Patient appears to be tall, thin, unshaven, longer hair, stated age is alert, directable, and attempts to cooperate. Patient appears to have adequate hygiene and grooming. Behavior: Patient is seated without any agitated behavior. Poor eye contact Speech: Patient's speech is fluent and nonpressured. Hesitant Mood/Affect: Patient reports their mood is depressed and anxious, affect is congruent and constricted. Suicidality/Homicidality: Patient denies having any homicidal ideation intent or plan. Denies any suicidal ideations intent or plan Perceptions: Patient denies any visual hallucinations and denies any auditory hallucinations Though content/process: There is no evidence of any delusional thought content and thought process is linear and goal-directed. Rambles at times. Memory and concentration: AOX3, grossly intact for the purposes of this session. Can spell "WORLD" backwards Judgment and insight: poor STRENGTHS/WEAKNESSES: strength is that patient is resilient. Weakness is that patient has poor judgment and is impulsive INTELLECT: average IMPRESSIONS: depressive disorder, unspecified Alcohol use disorder Nicotine dependence PLAN: -Patient is admitted under voluntary status to MHU for stabilization of psychiatric symptoms and safety. Patient has signed adult voluntary form and medication consent and is placed in patient's chart. -Medications : Zoloft 50mg daily for depression/anxiety, seroquel 50mg qhs for sleep -Ativan and Haldol PRN for agitation/aggression -Started thiamine, MVM for etoh use -CIWA protocol with Ativan PRN for ETOH withdrawal -Patient was counselled on substance abuse and desired to cut back on use -Patient was informed of the risks, benefits and side effects of the medication and patient verbally consented to taking the medications. Patient signed med consent form and was placed in chart. -Internal Medicine consult to perform medical evaluation and physical. -NRT - nicotine patch -SW on board for discharge planning. Encourage patient to participate in groups to work on coping skills. 10/26/23 11:51
[2023-10-26] MEDS: SERTRALINE 50 MG TAB PO SCH (12:38)
--- NOTE | 2023-10-26 13:51 | P.MDCNMH ---
History of Present Illness H&P Date: 10/26/23 History of present illness; patient is a 33-year-old gentleman with past medical history significant for schizoaffective disorder, depressive type, alcohol use disorder, nicotine dependence who initially presented to ER on 10/24/2023 for psychiatric evaluation. Patient was brought in by police as patient was walking around aimlessly talking to himself. Patient has history of schizo affective disorder and has been admitted to psych in the past. Patient was admitted to internal medicine team for alcohol detox and for psychiatric evaluation. Psychiatry evaluated the patient and recommended at this time patient meets criteria for inpatient psych admission and patient was transferred to inpatient psych REVIEW OF SYSTEMS: CONSTITUTIONAL: No fever, no malaise, no fatigue. HEENT: No recent visual problems or hearing problems. Denied any sore throat. CARDIOVASCULAR: No chest pain, orthopnea, PND, no palpitations, no syncope. PULMONARY: No shortness of breath, no cough, no hemoptysis. GASTROINTESTINAL: No diarrhea, no nausea, no vomiting, no abdominal pain. NEUROLOGICAL: No headaches, no weakness, no numbness. HEMATOLOGICAL: Denies any bleeding or petechiae. GENITOURINARY: Denies any burning micturition, frequency, or urgency. MUSCULOSKELETAL/RHEUMATOLOGICAL: Denies any joint pain, swelling, or any muscle pain. ENDOCRINE: Denies any polyuria or polydipsia. The rest of the 14-point review of systems is negative. PHYSICAL EXAMINATION: GENERAL: The patient is alert and oriented x3, not in any acute distress. Well developed, well nourished. HEENT: Pupils are round and equally reacting to light. EOMI. No scleral icterus. No conjunctival pallor. Normocephalic, atraumatic. No pharyngeal erythema. No thyromegaly. CARDIOVASCULAR: S1 and S2 present. No murmurs, rubs, or gallops. PULMONARY: Chest is clear to auscultation, no wheezing or crackles. ABDOMEN: Soft, nontender, nondistended, normoactive bowel sounds. No palpable organomegaly. MUSCULOSKELETAL: No joint swelling or deformity. EXTREMITIES: No cyanosis, clubbing, or pedal edema. NEUROLOGICAL: Gross neurological examination did not reveal any focal deficits. SKIN: No rashes. Assessment and plan Major depressive disorder, recurrent severe with psychotic features Alcohol intoxication Impending alcohol detox Schizoaffective disorder, depressive type Unspecified anxiety disorder Tobacco use disorder Monitor vital signs Elopement precautions Suicide precautions Continue psych meds per psychiatry team Labs and medication were reviewed.. Continue same treatment. Continue with symptomatic treatment. Resume home medication. Monitor labs and vitals. DVT and GI prophylaxis. Further recommendations as per clinical course of the patient Dictation was produced using [employer] dictation software. please excuse any grammatical, word or spelling errors. Past Medical History Past Medical History: No Reported History History of Any Multi-Drug Resistant Organisms: None Reported Past Surgical History: Tonsillectomy Additional Past Surgical History / Comment(s): oral Past Anesthesia/Blood Transfusion Reactions: No Reported Reaction Past Psychological History: Anxiety, Bipolar, Depression, PTSD Smoking Status: Current every day smoker Past Alcohol Use History: Abuse, Daily, Heavy Additional Past Alcohol Use History / Comment(s): HX of ETOH abuse and substance abuse. Rehab 4 years ago Past Drug Use History: Marijuana - Past Family History Father Family Medical History: No Reported History Mother Family Medical History: No Reported History Medications and Allergies Home Medications Medication Instructions Recorded Confirmed Type Thiamine [Vitamin B-1] 100 mg PO DAILY #30 tab 10/25/23 Rx Allergies Allergy/AdvReac Type Severity Reaction Status Date / Time No Known Allergies Allergy Verified 10/24/23 09:01 Physical Exam Vitals: Vital Signs Temp Pulse Resp BP Pulse Ox 10/25/23 23:18 98.3 F 75 18 179/96 99 Intake and Output 10/25/23 10/26/23 10/26/23 22:59 06:59 14:59 Other: Weight 77.11 kg 86 kg Cranial Nerve Examination - Cranial Nerves Cranial Nerve II- Optic: Intact (Cranial nerves II to XII intact) Cranial Nerve III- Oculomotor: Intact Cranial Nerve IV- Trochlear: Intact Cranial Nerve V- Trigeminal: Intact Cranial Nerve - Abducens: Intact Cranial Nerve VII- Facial: Intact Cranial Nerve VIII- Auditory: Intact Cranial Nerve IX- Glossopharyngeal: Intact Cranial Nerve X- Vagus: Intact Cranial Nerve XI- Accessory: Intact Cranial Nerve XII- Hypoglossal: Intact
[2023-10-26] MEDS: QUEtiapine 50 MG TAB PO SCH (21:13)
--- NOTE | 2023-10-27 10:59 | P.PN ---
Progress Note - Text Progress Note Date: 10/27/23 Interval History: Patient was seen wandering the hallways and was directable and agreeable to alvin jiménez with copywriter in the office. Patient states that he is doing better today. He states that the Zoloft relaxed him, and he did not expect it to work for him. He does endorse some anxiety, but he said it is not as bad as it was, and that some anxiety is normal for him. he is less focused on his father and parents today. He states he slept well last night. His appetite is good. Patient is going to [facility]. At this time patient denies any suicidal or homicidal ideations, intent or plan. Patient endorses some auditory hallucinations, denies visual hallucinations and denies any paranoia or delusions. Patient denies any side effects from the medications and has been compliant with meds. MENTAL STATUS EXAM: General Appearance: Patient appears to be tall, thin, unshaven, longer hair, stated age is alert, directable, and attempts to cooperate. Patient appears to have adequate hygiene and grooming. Behavior: Patient is seated without any agitated behavior. Poor eye contact, improving mildly Speech: Patient's speech is fluent and nonpressured. Mood/Affect: Patient reports their mood is improving, affect is congruent and constricted. improving mildly Suicidality/Homicidality: Patient denies having any homicidal ideation intent or plan. Denies any suicidal ideations intent or plan Perceptions: Patient denies any visual hallucinations and endorses auditory hallucinations Though content/process: There is no evidence of any delusional thought content and thought process is linear and goal-directed. Rambles at times. Improving mildly Memory and concentration: AOX3, grossly intact for the purposes of this session. Judgment and insight: poor, improving mildly IMPRESSIONS: depressive disorder, unspecified Alcohol use disorder Nicotine dependence PLAN: -Patient is admitted under voluntary status to [facility]HU for stabilization of psychiatric symptoms and safety. -Medications : Zoloft 50mg daily for depression/anxiety, seroquel 50mg qhs for sleep -Ativan and Haldol PRN for agitation/aggression -Started thiamine, MVM for etoh use -CIWA protocol with Ativan PRN for ETOH withdrawal -NRT - nicotine patch -SW on board for discharge planning. Encourage patient to participate in groups to work on coping skills. Likely discharge Thursday, if patient continues to improve.
[2023-10-28 07:14] VITALS: RESP 16
--- NOTE | 2023-10-28 12:01 | P.PN ---
Progress Note - Text Progress Note Date: 10/28/23 Interval History: Patient was seen in group, and was directable and agreeable to speak with tae stapleton in the office. Patient states that he is feeling well today. He states that the medication is really working for him. He does endorse some anxiety, but he said that it is improving. He states he slept well last night. His appetite is good. Patient is going to groups. Patient is no longer mentioning ill will toward his parents. At this time patient denies any suicidal or homicidal ideations, intent or plan. Patient still endorses some auditory hallucinations, but they are improving, denies visual hallucinations and denies any paranoia or delusions. Patient denies any side effects from the medications and has been compliant with meds. MENTAL STATUS EXAM: General Appearance: Patient appears to be tall, thin, unshaven, longer hair, stated age is alert, directable, and attempts to cooperate. Patient appears to have adequate hygiene and grooming. Behavior: Patient is seated without any agitated behavior. Poor eye contact, improving mildly Speech: Patient's speech is fluent and nonpressured. Mood/Affect: Patient reports their mood is improving, affect is congruent and constricted. improving mildly Suicidality/Homicidality: Patient denies having any homicidal ideation intent or plan. Denies any suicidal ideations intent or plan Perceptions: Patient denies any visual hallucinations and endorses auditory hallucinations Though content/process: There is no evidence of any delusional thought content and thought process is linear and goal-directed. Improving mildly Memory and concentration: AOX3, grossly intact for the purposes of this session. Judgment and insight: poor, improving mildly IMPRESSIONS: depressive disorder, unspecified Alcohol use disorder Nicotine dependence PLAN: -Patient is admitted under voluntary status to [facility]HU for stabilization of psychiatric symptoms and safety. -Medications : Zoloft 50mg daily for depression/anxiety, seroquel 50mg qhs for sleep -Ativan and Haldol PRN for agitation/aggression -Started thiamine, MVM for etoh use -CIWA protocol with Ativan PRN for ETOH withdrawal -NRT - nicotine patch -SW on board for discharge planning. Encourage patient to participate in groups to work on coping skills. Likely discharge Thursday, if patient continues to improve.
--- NOTE | 2023-10-29 10:51 | P.PN ---
Progress Note - Text Progress Note Date: 10/29/23 Interval History: Patient was seen walking in the hallways and was directable and agreeable to s peak with senior writer in the office. Patient states that he is feeling well today. He claims that the medications have been helping, claims that he was feeling a bit anxious yesterday, took an Ativan. We spoke about other options for anxiety including Vistaril, he was agreeable to try that today. He states that his mood has been improving mildly since being on the Zoloft. States that he is trying t o go to some groups, keeping himself occupied on the unit. He was somewhat focused on discharge. Claims that he was able to sleep fairly last night. Has an improving appetite. At this time patient denies any suicidal or homicidal ideations, intent or plan. He denies any auditory hallucinations, denies visual hallucinations and denies any paranoia or delusions. Patient denies any side effects from the medications and has been compliant with meds. MENTAL STATUS EXAM: General Appearance: Patient appears to be tall, thin, unshaven, longer hair, stated age is alert, directable, and attempts to cooperate. Patient appears to have adequate hygiene and grooming. Behavior: Patient is seated without any agitated behavior. Poor eye contact, improving mildly Speech: Patient's speech is fluent and nonpressured. Mood/Affect: Patient reports their mood is improving, affect is congruent improving mildly Suicidality/Homicidality: Patient denies having any homicidal ideation intent or plan. Denies any suicidal ideations intent or plan Perceptions: Patient denies any visual hallucinations and endorses auditory hallucinations Though content/process: There is no evidence of any delusional thought content and thought process is linear and goal-directed. Improving mildly Memory and concentration: AOX3, grossly intact for the purposes of this session. Judgment and insight: improving mildly IMPRESSIONS: depressive disorder, unspecified Alcohol use disorder Nicotine dependence PLAN: -Patient is admitted under voluntary status to MHU for stabilization of psychiatric symptoms and safety. -Medications : Zoloft 50 mg daily for depression/anxiety, seroquel 50mg qhs for sleep -Ativan and Haldol PRN for agitation/aggression -vistaril prn for anxiety -thiamine, MVM for etoh use -d/c [facility] protocol -NRT - nicotine patch -SW on board for discharge planning. Encourage patient to participate in groups to work on coping skills. Likely discharge tomorrow, if patient continues to improve.
[2023-10-29] MEDS: hydrOXYzine pamoate 25 MG CAP PO PRN (21:31)
[2023-10-30 07:11] VITALS: BP 126/66; PULSE 103; TEMP 97.1
--- NOTE | 2023-10-30 10:12 | P.DS ---
Providers Date of admission: 10/25/23 23:01 Expected date of discharge: 10/30/23 Attending physician: Moiz Cobian MD Consults: 10/25/23 22:44 Consult Physician Routine Consulting Provider: Zelalem Kramer Consult Reason/Comments: medical management Do you want consulting provider notified?: Yes, Notify in am Primary care physician: Zelalem Kramer MD - Discharge Diagnosis(es) (1) Depressive disorder Current Visit: Yes Status: Acute (2) Alcohol use disorder Current Visit: No Status: Acute Priority: High (3) Nicotine dependence Current Visit: No Status: Acute Priority: Low Hospital Course: Admission HPI: Admission note was completed by commercial real estate underwriter "Patient presented to the hospital on 10/23. He was admitted medically due to alcohol withdrawal. As per EPS note, "patient evaluated on 5N- admitted medical d/t alcohol level upon arrival to ED 10/24/23. Patient states he "got maniac and drunk- called police on myself- got up today with some hope. I've got a lot of really nasty shit going on in my life- Salima snapped- got a little toasted and snapped." patient reports stress with his parents being his "payee", states they control everything- where he lives, how he spends his money. Patient reports noncompliance with medications, poor appetite, poor sleep. patient reports he hears negative voices. patient states he only drinks a few times a month and appears to minimize past problems with alcohol. patient unkempt with poor eye contact and rambling." Dr. Alberto completing a consult while patient was on the medical floor. As per consult note, "On my assessment, patient was found laying in bed watching TV. He appears withdrawn and irritable. His thought process is ruminative and circumstantial. He appears to be a fair historian and somewhat guarded and evasive when answering some questions. He admits to depressed mood, variable sleep with sometimes sleeping too much and sometimes sleeping too little, low energy, fair concentration, variable appetite with sometimes having appetite and sometimes not eating, and psychomotor slowing. He denies suicidal thoughts today, but reports he has had suicidal ideation on and off for years, and reports he had thoughts of "wanting this life to be over with" in the past month. He is tearful. He reports feeling hopeless and helpless. He denies feeling worthless. He reports he "hears voices" "all day everyday", and states the "hallucinations" started in 2012. He reports the voices sound "internal" as if coming from inside his head. He denies command auditory hallucinations currently. He claims he was not walking around talking to himself but that he decided to call the police for himself because he "drank too much and was freaking out". He reports family and financial stressors because he believes his parents may kick him out of their condo (reports they put a 7-day notice on his door to clean the condo or eviction?). He also reports it is stressful having his mother as his payee and feels his parents control many aspects of his life despite being his own guardian." Today, patient states he was "dealing with dumb shit, and doing dumb shit". He states that he is going through alot of "weird" stuff with his parents, coming onto his property and taking his stuff. He states the medications don't help, so he don't take them, and he just gave up. He states he is no longer having suicidal thoughts, and he denies AH/VH. He states that his appetite and sleep has been better since being in the hospital. Denies using any recreational drugs, states he drinks once a week, and he smokes cigarettes. " Hospital course: Upon admission to the unit patient was directable and agreeable to commence treatment and signed adult voluntary form. Patient got along well with other patients on the unit and followed unit protocol. Patient was compliant with the medications and denied any side effects throughout hospital course. Patient was started on Zoloft and increased to dose of 50 mg daily for mood/anxiety, Seroquel increased to dose of 50 mg nightly for insomnia/mood stabilization, Vistaril as needed for anxiety. patient was offered anticravings medications for etoh however declined them at this time. Patient spoke of his stressors and engaged in therapy both group and individual. Patient was also seen by medical team for history and physical exam. Throughout the course of the hospitalization patient gradually improved with regards to mood, anxiety, sleep and became more future oriented with improved insight and judgment. On the day of discharge patient denied any suicidal or homicidal ideations intent or plan denied any auditory or visual hallucinations. Patient endorsed wanting to live for his health and family. The patient denied any access to guns or weapons. Patient denied any paranoia and did not endorse any delusions. Patient does have a significant history of substance abuse and was counseled on abstaining from all substances including alcohol and marijuana. Patient elected to do outpatient substance use treatment program through [facility]. Patient was also counseled on the medications and need for regular compliance and was encouraged to follow-up with their outpatient appointment for mental health and also for primary care. Prior to discharge a family meeting will be arranged by social research assistant to answer any questions and ensure safety upon discharge. Mental status exam: General Appearance: Patient appears to be tall, stated age is alert, pleasant, and cooperative. Patient is in no acute distress and has improved hygiene and grooming Behavior: Patient is calmly seated without any agitated behavior. Speech: Patient's speech is fluent and nonpressured. Mood/Affect: Patient reports their mood is "better", affect is congruent and euthymic. Suicidality/Homicidality: Patient denies having any suicidal or homicidal ideation intent or plan. Perceptions: Patient denies any auditory or visual hallucinations. Though content/process: There is no evidence of any delusional thought content and thought process is linear and goal-directed. Memory and concentration: AOX3, grossly intact for the purposes of this session. Can spell "WORLD" backwards correctly. Judgment and insight: improved with guarded prognosis Impression: depressive disorder, unspecified Alcohol use disorder Nicotine dependence Plan: -Continue with discharge today as patient has improved and stabilized psychiatrically and is not currently an imminent threat to himself and/or others. Patient will remain at chronically elevated risk for harm to self and/or others due to his impulsivity. -Continue medications: Zoloft 50 mg daily for mood/anxiety, Seroquel 50 mg nightly for insomnia/mood stabilization, Vistaril twice daily as needed for anxiety. -Patient was counseled on the need for medication compliance and appropriate follow-up at mental health and also primary care for medical issues. Patient verbalized understanding and agreed. -Social work to arrange for and conduct family meeting to ensure safety upon discharge and answer any questions/concerns. Social work also to arrange for patients follow up appointments with [facility] for psychiatric care along with follow up with primary care provider. -Patient counseled on abstaining from recreational drugs and marijuana and alcohol. Was informed/educated on the adverse effects on their physical and mental health. Patient verbally agreed and understood. Patient was offered substance abuse treatment however declined at this time. -Patient was instructed to return to the hospital or seek immediate medical care if their psychiatric or medical symptoms do worsen or reoccur. Allergies Allergy/AdvReac Type Severity Reaction Status Date / Time No Known Allergies Allergy Verified 10/24/23 09:01 Vital Signs Temp 97.1 F L 10/30/23 06:24 Pulse 103 H 10/30/23 06:24 Resp 16 10/30/23 06:24 BP 126/66 10/30/23 06:24 Pulse Ox 98 10/27/23 07:09 FiO2 Patient Condition at Discharge: Stable Plan - Discharge Summary Discharge Rx Participant: Yes New Discharge Prescriptions: New Folic Acid 1 mg PO DAILY tab Nicotine 7Mg/24Hr Patch [Habitrol] 1 patch TRANSDERM DAILY 14 Days #14 patch Thiamine [Vitamin B-1] 100 mg PO DAILY tab Sertraline [Zoloft] 50 mg PO DAILY 30 Days #30 tab Multivitamins, Thera [Multivitamin (formulary)] 1 each PO DAILY tab QUEtiapine [SEROquel] 50 mg PO HS 30 Days #30 tab hydrOXYzine pamoate [Vistaril] 50 mg PO BID PRN 30 Days #120 cap PRN Reason: Anxiety Discontinued Thiamine [Vitamin B-1] 100 mg PO DAILY #30 tab Discharge Medication List Folic Acid 1 mg PO DAILY tab 10/30/23 [Rx] Multivitamins, Thera [Multivitamin (formulary)] 1 each PO DAILY tab 10/30/23 [Rx] Nicotine 7Mg/24Hr Patch [Habitrol] 1 patch TRANSDERM DAILY 14 Days #14 patch 10/30/23 [Rx] QUEtiapine [SEROquel] 50 mg PO HS 30 Days #30 tab 10/30/23 [Rx] Sertraline [Zoloft] 50 mg PO DAILY 30 Days #30 tab 10/30/23 [Rx] Thiamine [Vitamin B-1] 100 mg PO DAILY tab 10/30/23 [Rx] hydrOXYzine pamoate [Vistaril] 50 mg PO BID PRN 30 Days #120 cap 10/30/23 [Rx] Follow up Appointment(s)/Referral(s): Zelalem Kramer MD [Primary Care Provider] - 1 Week Patient Instructions/Handouts: How to Stop Smoking (DC), Depression (DC), Abuse of Alcohol (ED) Activity/Diet/Wound Care/Special Instructions: Avoid the use of street drugs and alcohol. Take all medications as prescribed. When you are in need of refills on your medications, please contact your medical provider and/or outpatient psychiatrist/provider to have this done. Please go to your scheduled outpatient appointment for aftercare treatment. If symptoms return or become worse, call the crisis line at and/or go to the nearest emergency room for evaluation. National Suicide Hotline 988 Discharge Disposition: HOME SELF-CARE
== END 2023-10-30 12:50 | disposition home or self-care (01) | DRG 881 ==
LOC: 3MHU 23:01
PROVIDERS: ADMIT Psychiatry & Neurology Psychiatry; ATTEND Psychiatry & Neurology Psychiatry
DX: F32.A Depression, unspecified (principal); F10.139 Alcohol abuse with withdrawal, unspecified; F10.129 Alcohol abuse with intoxication, unspecified; F17.200 Nicotine dependence, unspecified, uncomplicated; F31.9 Bipolar disorder, unspecified; F41.9 Anxiety disorder, unspecified; F43.10 Post-traumatic stress disorder, unspecified; G47.00 Insomnia, unspecified; Z59.86 Financial insecurity; Z79.899 Other long term (current) drug therapy; Z91.148 Patient's other noncompliance with medication regimen for other reason; Z91.51 Personal history of suicidal behavior